=== PATIENT | male | born 1960 | race Caucasian/White ===

== ENCOUNTER 2018-03-20 08:30 | Outpatient (RCR) | payer OTHER, SELFPAY | END 2018-04-13 15:17 | LOC: CAR 08:30 | PROVIDERS: Family Provider Family Medicine; PCP Family Medicine; Visit Provider Internal Medicine Cardiovascular Disease | DX: I21.3 ST elevation (STEMI) myocardial infarction of unspecified site (principal) | CPT/HCPCS: 93798 ==

== ENCOUNTER 2018-05-02 06:50 | Day surgery (SDC) | payer OTHER, SELFPAY ==
[2018-05-02] VITALS (10 sets, daily range): BP systolic 105–136; BP diastolic 71–91; PULSE 45–52; RESP 6–16; TEMP 36–36.4; O2SAT 94–100; BMI 34.2
[2018-05-02] MEDS: SODIUM CHLORIDE 0.9% 1,000 ML 200 ML IV (07:45)
--- NOTE | 2018-05-02 08:31 | PM.HP.1 ---
History of Present Illness Date Patient Seen: 05/02/18 Time Patient Seen: 08:31 Chief complaint: [id number] SCREENING COLONOSCOPY Narrative: Very pleasant 4-year-old gentleman who presents today for his 1st screening colonoscopy. He reports that he had a heart attack in December of this year and has been on blood thinners since that time. He denies any chest pain. He reports that his weight has been stable. He denies any pain in his abdomen but does report he occasionally has a crampy sensation in the late afternoon. He has never seen any blood in his stools. He denies any family history of colon cancer. He reports that his heart attack sort of ?woke me up?. He needs a colonoscopy as part of the Health maintenance program. Patient History Medical History Obstructive sleep apnea of adult (Acute) CAD (coronary artery disease) (Chronic) Chronic radicular low back pain (Chronic) Hyperlipidemia (Chronic) History of small bowel obstruction (Resolved 2013) Myocardial infarction (Resolved 2017) Myocardial infarction involving left anterior descending (LAD) coronary artery (Resolved 2018) Surgical History History of placement of stent in LAD coronary artery (Resolved 2018) Family & Social History Family History: Reviewed 05/02/18 by Felisha Arellano MD Social History: household members spouse Tobacco & Substance use: Smoking Status Never smoker Meds Home Medications Medication Instructions Recorded Confirmed Type diclofenac sodium 75 mg PO BID #60 ect 05/31/17 03/21/18 Rx omeprazole 40 mg PO HS #90 tab 07/20/17 05/02/18 Rx albuterol sulfate [Ventolin HFA] 2 puff INH Q4HP PRN #1 ea 08/17/17 03/21/18 Rx cetirizine 10 mg PO QDAY #0 08/17/17 05/02/18 History atorvastatin [Lipitor] 10 mg PO HS #90 tab 10/22/17 05/02/18 Rx aspirin 81 mg PO QDAY #0 12/28/17 05/02/18 History losartan [Cozaar] BID #0 12/28/17 03/21/18 History nitroglycerin [Nitrostat] #0 12/28/17 03/21/18 History spironolactone #0 12/28/17 03/21/18 History ticagrelor [Brilinta] 90 mg PO #0 12/28/17 03/21/18 History hydrocortisone 2.5 % topical cream 1 applictn MO TID PRN #1 tube 03/12/18 03/21/18 Rx with perineal applicator carvedilol 6.25 mg PO BID 05/02/18 05/02/18 History Allergies Allergy/AdvReac Type Severity Reaction Status Date / Time No Known Drug Allergies Allergy Verified 05/02/18 07:18 Review of Systems Review of Systems All systems reviewed & are unremarkable except as noted in HPI and below Exam Vital Signs (past 8 hours): - 05/02/18 07:26 Temperature 97.5 F L Pulse Rate 46 L Respiratory Rate 16 Blood Pressure 136/85 H Pulse Oximetry 100 Oxygen Delivery Method Room Air Narrative Exam Narrative: Very pleasant middle-aged gentleman in no obvious distress. HEENT: Normocephalic and atraumatic, pupils equal round reactive to light and anicteric sclera Lungs: Clear bilaterally Heart: Regular rate and rhythm Abdomen: Soft, rotund, active bowel sounds Extremities: Warm and well perfused without edema Assessment & Plan Plan: Assessment/Plan Narrative: Very pleasant gentleman whose had a recent heart attack and no prior colonoscopy. We discussed the risks and benefits of colonoscopy including an increased bleeding while taking blood thinners. The patient has expressed an understanding of the risk is elected to have the procedure
--- NOTE | 2018-05-02 08:34 | P.HP_ITS ---
History of Present Illness Date Patient Seen: 05/02/18 Time Patient Seen: 08:31 Chief complaint: [id number] SCREENING COLONOSCOPY Narrative: Very pleasant 4-year-old gentleman who presents today for his 1st screening colonoscopy. He reports that he had a heart attack in December of this year and has been on blood thinners since that time. He denies any chest pain. He reports that his weight has been stable. He denies any pain in his abdomen but does report he occasionally has a crampy sensation in the late afternoon. He has never seen any blood in his stools. He denies any family history of colon cancer. He reports that his heart attack sort of ?woke me up?. He needs a colonoscopy as part of the Health maintenance program. Patient History Medical History Obstructive sleep apnea of adult (Acute) CAD (coronary artery disease) (Chronic) Chronic radicular low back pain (Chronic) Hyperlipidemia (Chronic) History of small bowel obstruction (Resolved 2013) Myocardial infarction (Resolved 2017) Myocardial infarction involving left anterior descending (LAD) coronary artery ( Resolved 2018) Surgical History History of placement of stent in LAD coronary artery (Resolved 2018) Family & Social History Family History: Reviewed 05/02/18 by Felisha Arellano MD Social History: household members spouse Tobacco & Substance use: Smoking Status Never smoker Meds Home Medications Medication Instructions Recorded Confirmed Type diclofenac sodium 75 mg PO BID #60 ect 05/31/17 03/21/18 Rx omeprazole 40 mg PO HS #90 tab 07/20/17 05/02/18 Rx albuterol sulfate [Ventolin HFA] 2 puff INH Q4HP PRN #1 ea 08/17/17 03/21/18 Rx cetirizine 10 mg PO QDAY #0 08/17/17 05/02/18 History atorvastatin [Lipitor] 10 mg PO HS #90 tab 10/22/17 05/02/18 Rx aspirin 81 mg PO QDAY #0 12/28/17 05/02/18 History losartan [Cozaar] BID #0 12/28/17 03/21/18 History nitroglycerin [Nitrostat] #0 12/28/17 03/21/18 History spironolactone #0 12/28/17 03/21/18 History ticagrelor [Brilinta] 90 mg PO #0 12/28/17 03/21/18 History hydrocortisone 2.5 % topical cream 1 applictn NV TID PRN #1 tube 03/12/18 Rx with perineal applicator carvedilol 6.25 mg PO BID 05/02/18 05/02/18 History Allergies Allergy/AdvReac Type Severity Reaction Status Date / Time No Known Drug Allergies Allergy Verified 05/02/18 07:18 Review of Systems Review of Systems All systems reviewed & are unremarkable except as noted in HPI and below Exam Vital Signs (past 8 hours): - 05/02/18 07:26 Temperature 97.5 F L Pulse Rate 46 L Respiratory Rate 16 Blood Pressure 136/85 H Pulse Oximetry 100 Oxygen Delivery Method Room Air Narrative Exam Narrative: Very pleasant middle-aged gentleman in no obvious distress. HEENT: Normocephalic and atraumatic, pupils equal round reactive to light and anicteric sclera Lungs: Clear bilaterally Heart: Regular rate and rhythm Abdomen: Soft, rotund, active bowel sounds Extremities: Warm and well perfused without edema Assessment & Plan Plan: Assessment/Plan Narrative: Very pleasant gentleman whose had a recent heart attack and no prior colonoscopy. We discussed the risks and benefits of colonoscopy including an increased bleeding while taking blood thinners. The patient has expressed an understanding of the risk is elected to have the procedure
[2018-05-02] MEDS: MIDAZOLAM 5 MG/5 ML VIAL IV (08:55)
[2018-05-02] MEDS: fentaNYL 250 MCG/5 ML INJ IV (08:56)
--- NOTE | 2018-05-02 09:04 | PM.OP.1 ---
Operative Date/Time/Diagnoses Date of procedure: 05/02/18 Time of procedure: 09:04 Pre-op diagnosis: Screening Post-op diagnosis: same Procedure & Clinicians Procedure: Colonoscopy to the cecum with polypectomy x1 Same procedure as scheduled: Yes Indications: No prior colonoscopy Surgeon: Felisha Arellano Click Yes if Unassisted: Yes Anesthesia Type: Sedation (Versed 10 mg; fentanyl 250 mcg) Operative Notes Findings: 1. Adequate prep 2. Significant diverticulosis from 60 cm to the junction of the sigmoid colon and rectum. Mostly large open pockets 3. A single 3 mm sessile polyp at 70 cm from the anal verge. It was removed with cold forceps and submitted for pathology 4. No AV malformations 5. Enlarged internal hemorrhoids but grade 1 6. Otherwise normal colonoscopy Closure Type: not applicable Specimen(s): other (Polyp at 70 cm) Estimated Blood Loss (mL): 1 Procedure in detail: After obtaining informed consent, the patient was brought to the GI suite and placed in the left lateral decubitus position on the examination table. After placement of appropriate monitors, the patient was given incremental doses of Versed and Fentanyl until an appropriate level of sedation was achieved. A time out was held per SCOAP protocol. A digital rectal examination was performed and did not reveal any masses or obstructing lesions. The colonoscope was gently passed into the patient's anus and the entire colon navigated to the level of the cecum with minimal difficulty. Once in the cecum, the scope was withdrawn being sure to go before and beyond all mucosal folds and prominences and get an excellent examination. The findings are noted above. At the level of the rectal vault, the scope was retroflexed and the internal anal canal was examined. The scope was straightened and air aspirated from the colon. The instrument was removed from the patient's body and the procedure was concluded. The patient was allowed to awaken from sedation without difficulty and taken to the post-anesthesia care unit in good condition. Total sedation time 33 min Total withdrawal time 11 min Complications: none Condition: stable Disposition: PACU Plan for aftercare: 1. Discharge to home 2. Plan for next colonoscopy in 5 years or as clinically indicated
--- NOTE | 2018-05-02 09:26 | SUR.PHASEI ---
Passing flatus but denies cramping.
--- NOTE | 2018-05-02 09:29 | SUR.PHASEI ---
till quite sleepy but easily arousable to voice. VSS and despite sleepiness does meet PACU d/c criteria.
--- NOTE | 2018-05-02 09:49 | SUR.PHASEII ---
Spoke to Diallo on phone with D/C instructions and findings due to patient sleepiness.
--- NOTE | 2018-05-02 09:59 | SUR.PHASEII ---
About ready for discharge but after dressing feeling lihghtheaded and returned to the stretcher. VS done.
--- NOTE | 2018-05-02 10:29 | SUR.PHASEII ---
Discharged at 1018 after equal set of orthostatic VS. Desired D/C home at that time. Accompanied to exit in W/C by volunteer and .
--- NOTE | 2018-05-02 23:18 | PATH_ITS ---
Specimen ID: [id number] Control ID: [facility] PATHOLOGY ONLY [id number] [place] [address] Patient Details JEANNIE CH : 1960 Age(y/m/d): Gender: M SSN: Additional Information: Clinical Info: [id number] Specimen Details Date collected: 05/02/20182317 Local Date received: 05/02/2018 Date entered: 05/02/2018 Date reported: 05/08/2018 1905 ET Physician Details Ordering: Olga PALACIOS Referring: ID: Pathology Report Tests Ordered: Clinician Provided ICD Code(s) & Clinical History: Material Submitted: () Gross Description: (01) Received in one formalin-filled container labeled with the patient's name and labeled colon polyp at 70 cm, are two 0.3-0.4 cm portions of tissue, entirely submitted in one cassette.([id number]) /FRR COLON POLYP AT 70CM Diagnosis: (02) Colon Polyp At 70 CM: Sessile serrated adenoma. BFI/05/03/2018 Pathologist Provided ICD Code(s): (02) D12.6 CPT Codes: (02) 309032 This is an amended report due to a clerical error. There is no change in the diagnosis. This case is amended in order for the results to cross the electronic interface. The final diagnosis is not changed. This case was originally reviewed and reported by Dr. Aryan Yancey on 05/03/2018. Electronically signed by (02) Elizabeth Amin MD, Pathologist NPI- [id number]
== END 2018-05-02 10:18 | disposition home or self-care (01) ==
PROVIDERS: Family Provider Family Medicine; PCP Family Medicine; Visit Provider Surgery
PROC: 0DJD8ZZ Inspection of Lower Intestinal Tract, Via Natural or Artificial Opening Endoscopic (ICD-10-PCS; CPT 45378; principal; 2018-05-02 07:45)
DX: Z12.11 Encounter for screening for malignant neoplasm of colon (principal); K57.30 Diverticulosis of large intestine without perforation or abscess without bleeding; K64.0 First degree hemorrhoids; I25.2 Old myocardial infarction; G47.33 Obstructive sleep apnea (adult) (pediatric); I25.10 Atherosclerotic heart disease of native coronary artery without angina pectoris; G89.29 Other chronic pain; M54.5 Low back pain; E78.5 Hyperlipidemia, unspecified; D12.4 Benign neoplasm of descending colon
CPT/HCPCS: 45380; 99152; 99153; J2250; J3010

== ENCOUNTER → 2018-11-25 16:13 | Outpatient (CLI) | payer OTHER, SELFPAY ==
--- NOTE | 2018-11-25 16:16 | DI.MRI.S_ITS ---
PROCEDURE: MR LUMBAR SPINE WO CON INDICATIONS: Low back pain radiating into bilateral hips and down posterior bilateral legs TECHNIQUE: Noncontrast sagittal T1 spin echo and T2 fast echo, sagittal STIR, axial T1 and T2 fast spin echo through the lumbar spine. In cases with scoliosis, additional coronal T2 fast spin echo may be performed. COMPARISON: [facility], MR, L-SPINE WITHOUT CONTRAST, 04/03/2017, 18:41. [facility], CR, L-SPINE 2-3 VIEWS, 06/25/2014, 10:45. FINDINGS: Image quality: Excellent. Alignment and Curvature: 5 lumbar-type vertebral bodies by plain film. Mild grade 1 retrolisthesis of L2 on L3 and L3 on L4. Bone Marrow: Marrow is of normal overall signal. No acute vertebral body compression fractures. Mild reactive signal within the endplates adjacent to the L1-L2, L2-L3, L3-L4 intervertebral discs. Spinal Cord: Conus medullaris terminates at the lower L1 level. Visualized cord demonstrates normal signal and size. Paraspinous Soft Tissues: No paravertebral masses. L1-L2: Congenital canal stenosis. Moderate disc desiccation. Mild diffuse disc bulge. Mild disc height loss. Mild ligamentum flavum hypertrophy. Mild epidural lipomatosis. Moderate canal stenosis. Mild foraminal stenosis bilaterally. No change. L2-L3: Congenital canal stenosis. Moderate disc height loss and desiccation. Moderate diffuse disc bulge with superimposed broad-based left posterolateral protrusion. Previously seen superimposed extrusion has resolved. Mild epidural lipomatosis. Mild facet and ligamentum flavum hypertrophy. Severe canal stenosis is unchanged. Moderate left and mild right subarticular foraminal stenosis is unchanged. L3-L4: Congenital canal stenosis. Moderate disc height loss and desiccation. Mild diffuse disc bulge. Mild facet and ligament flavum hypertrophy. Mild epidural lipomatosis. Increased, severe canal stenosis. No change in moderate subarticular foraminal stenosis bilaterally. L4-L5: Congenital canal stenosis. Mild disc height loss and desiccation. Mild diffuse disc bulge. Moderate facet and ligamentum flavum hypertrophy bilaterally. Possible right hemilaminotomy. Increased, severe canal stenosis. Moderate subarticular foraminal stenosis bilaterally is unchanged. L5-S1: Congenital canal stenosis. Moderate bilateral facet hypertrophy. Mild canal stenosis. Moderate subarticular foraminal stenosis bilaterally. No change. IMPRESSION: 1. Diffuse congenital canal stenosis with superimposed multilevel degenerative disc and facet disease, as well as ligamentum flavum hypertrophy and epidural lipomatosis. 2. Multilevel canal stenoses, worst at L2-L3, L3-L4, and L4-L5, where there are severe canal stenoses present. 3. Multilevel foraminal stenoses, as described above. Dictated by: You Godinez M.D. on 11/25/2018 at 16:29 Approved by: You Godinez M.D. on 11/25/2018 at 16:35
== END ==
PROVIDERS: Family Provider Family Medicine; PCP Internal Medicine; Visit Provider Neurological Surgery
DX: M51.16 Intervertebral disc disorders with radiculopathy, lumbar region (principal); M48.07 Spinal stenosis, lumbosacral region; M48.062 Spinal stenosis, lumbar region with neurogenic claudication; M54.5 Low back pain; E88.2 Lipomatosis, not elsewhere classified
CPT/HCPCS: 72148

== ENCOUNTER → 2019-02-13 09:31 | Outpatient (CLI) | payer OTHER, SELFPAY ==
[2019-02-13 11:06] LABS: Alanine Aminotransferase 20 IU/L (21-72); Albumin 4.2 g/dL (3.5-5.0); Albumin Globulin Ratio 1.4 (1.0-2.8); Alkaline Phosphatase 69 U/L (38-126); Aspartate Aminotransferase 31 IU/L (17-59); Bilirubin Total 1.3 mg/dL (0.2-1.3); HEMOLYSIS 22 (0-50); Total Protein 7.2 g/dL (6.3-8.2)
== END ==
PROVIDERS: Family Provider Family Medicine; PCP Internal Medicine; Visit Provider Internal Medicine
DX: I50.22 Chronic systolic (congestive) heart failure (principal)
CPT/HCPCS: 36415; 80076

== ENCOUNTER → 2019-02-20 06:53 | Outpatient (CLI) | payer OTHER, SELFPAY ==
--- NOTE | 2019-02-20 | DI.ECHO.S_ITS ---
[facility]---------+ [facility] +---------+ : : [address] [address] : : : : [id number] : : : : Phone: [phone] Echocardiogram Report + + :Name: JEANNIE CH Study Date: 02/20/2019 Height: 72 in : :[facility] Exam Location: [facility] Weight: 258 lb : : Gender: Male BSA: 2.4 m2 : :: 1960 Age: 59 yrs BP: 118/72 mmHg: :Reason For Study: Myocardial Infarction : : Performed By: Tiffani Valenzuela : :Referring: ALICIA DURAN : + + Interpretation Summary Moderately dilated left ventricle with ejection fraction 25-30%. Old anterior, septum and apical infarct. Mild biatrial enlargement. Mild mitral regurgitation. Comparison is made with the echocardiogram of 02/12/2018, LV function and wall motion abnormality have worsen. Procedure: A two-dimensional transthoracic echocardiogram with color flow and Doppler was performed. The study quality was technically adequate. Comparison is made with the echocardiogram of 02/12/2018. The patient was in normal sinus rhythm during the exam. Left Ventricle: The left ventricle is moderately dilated. Left ventricular wall thickness is normal. There is no thrombus. The ejection fraction is estimated to be 25-30%. There is anterior wall akinesis. There is septal wall severe hypokinesis. Right Ventricle: The right ventricle is normal in size and function. Atria: There is mild biatrial enlargement. The interatrial septum is intact with no evidence for an atrial septal defect. Mitral Valve: The mitral valve is normal in structure and function. There is mild mitral regurgitation. Aortic Valve: The aortic valve is trileaflet. The aortic valve opens well. There is trace aortic regurgitation. Tricuspid Valve: The tricuspid valve is normal in structure and function. There is a trace or physiologic amount of tricuspid regurgitation. Pulmonary artery pressures cannot be estimated because of the lack of a measurable TR jet velocity. Pulmonic Valve: The pulmonic valve is not well seen, but is grossly normal. There is a trace or physiologic amount of pulmonic regurgitation. Great Vessels: The ascending aorta is normal in size. The IVC is of normal diameter and collapses greater than 50% with a sniff. This suggests a low right atrial pressure of 3 mm Hg. Pericardium/ Pleura There is an anterior echo-free space consistent with a fat pad. There is no pericardial effusion. There is no pleural effusion. MMode/2D Measurements & Calculations LVIDd: 6.8 cm LVOT diam: 2.3 cm LVIDs: 5.5 cm asc Aorta Diam: 3.1 cm FS: 18.6 % Ao Arch Diam (Prox Trans): 3.2 cm EPSS: 2.8 cm IVSd: 0.94 cm LVPWd: 0.92 cm LV marrero. diameter/BSA (cm/m^2): 2.9 LV sys. diameter/BSA (cm/m^2): 2.3 LA A2 area: 27.1 cm2 RA long axis: 6.1 cm LA A4 area: 24.3 cm2 RA area: 29.3 cm2 LA length (vol): 6.1 cm RA vol: 119.4 ml LA vol: 91.6 ml RA : 50.3 ml/m2 LA vol index: 38.6 ml/m2 TAPSE: 2.2 cm Doppler Measurements & Calculations Ao V2 max: 110.2 cm/sec LVOT Max Dirk: 75.9 cm/sec Ao V2 mean: 81.0 cm/sec LV V1 max P.3 mmHg Ao max P.9 mmHg LV V1 VTI: 14.0 cm Ao mean P.8 mmHg NATHALY(I,D): 2.4 cm2 Ao V2 VTI: 23.4 cm NATHALY(V,D): 2.7 cm2 sev ratio: 0.60 NATHALY indexed to BSA (cm^2/m^2): 1.0 MV E max dirk: 76.8 cm/sec PA V2 max: 52.4 cm/sec MV A max dirk: 44.6 cm/sec PA V2 mean: 36.7 cm/sec MV E/A: 1.7 PA mean P.59 mmHg Med Peak E' Dirk: 7.5 cm/sec PA pr(Accel): 12.5 mmHg E/E' med: 10.3 MV dec time: 0.10 sec SV(LVOT): 55.8 ml Electronically signed by: Khalida Narvaez on Reading Physician:02/20/2019 10:59 AM
== END ==
PROVIDERS: PCP Internal Medicine; Visit Provider Internal Medicine
DX: I21.9 Acute myocardial infarction, unspecified (principal); I34.0 Nonrheumatic mitral (valve) insufficiency
CPT/HCPCS: 93306

== ENCOUNTER → 2019-03-31 09:45 | Outpatient (CLI) | payer OTHER, SELFPAY ==
[2019-03-31 11:13] LABS: BUN Creatinine Ratio 17.3 (6-22); Blood Urea Nitrogen 19 mg/dL (9-20); Calcium 9.1 mg/dL (8.4-10.2); Carbon Dioxide 26 mmol/L (22-32); Chloride 108 mmol/L (98-107); Estimated Glomerular Filt Rate > 60.0 mL/min (>60); Glucose 101 mg/dL (80-110); HEMOLYSIS < 15 (0-50); Potassium 5.3 mmol/L (3.4-5.1); Sodium 141 mmol/L (137-145)
== END ==
PROVIDERS: PCP Internal Medicine; Visit Provider Internal Medicine Cardiovascular Disease
DX: I25.10 Atherosclerotic heart disease of native coronary artery without angina pectoris (principal); I25.5 Ischemic cardiomyopathy
CPT/HCPCS: 36415; 80048

== ENCOUNTER → 2019-05-16 13:46 | Outpatient (CLI) | payer OTHER, SELFPAY ==
--- NOTE | 2019-05-16 | DI.RAD.S_ITS ---
PROCEDURE: XR TOE LT MIN 2V INDICATIONS: TOE PAIN, NO TRAUMA TECHNIQUE: 3 views of the left toe(s) acquired. COMPARISON: None. FINDINGS: Bones: No fractures or dislocations. No suspicious bony lesions. Severe first MTP joint degeneration. Chronic ossicle projects at the great toe interphalangeal joint. Marginal lucency at the first MTP joint. There is spurring and possible osseous bunion on the weight-bearing views would be more specific. Soft tissues: No suspicious soft tissue densities. IMPRESSION: Severe first MTP joint degeneration. Great toe interphalangeal joint degeneration. Small marginal lucency projecting at the medial aspect of the first MTP joint. Technically age-indeterminate finding. Dictated by: Tu Mcdermott M.D. on 05/16/2019 at 16:41 Approved by: Tu Mcdermott M.D. on 05/16/2019 at 16:43
== END ==
PROVIDERS: Family Provider Internal Medicine; PCP Internal Medicine; Visit Provider Nurse Practitioner Family
DX: M79.675 Pain in left toe(s) (principal); M19.072 Primary osteoarthritis, left ankle and foot
CPT/HCPCS: 73660

== ENCOUNTER 2019-06-04 08:30 | Outpatient (RCR) | payer OTHER, SELFPAY | END 2019-06-05 11:30 | disposition home or self-care (01) | LOC: CAR 08:30 | PROVIDERS: Family Provider Family Medicine; PCP Internal Medicine; Visit Provider Internal Medicine | DX: Z95.5 Presence of coronary angioplasty implant and graft (principal) | CPT/HCPCS: 93798 ==

== ENCOUNTER → 2019-09-15 08:09 | Outpatient (CLI) | payer OTHER, SELFPAY ==
[2019-09-15 09:29] LABS: Blood Urea Nitrogen 31 mg/dL (9-20); Carbon Dioxide 27 mmol/L (22-32); Chloride 103 mmol/L (98-107); Estimated Glomerular Filt Rate > 60.0 mL/min (>60); Glucose 112 mg/dL (80-110); HEMOLYSIS < 15 (0-50); Potassium 4.7 mmol/L (3.4-5.1); Sodium 138 mmol/L (137-145)
== END ==
PROVIDERS: Visit Provider Internal Medicine Cardiovascular Disease
DX: I25.5 Ischemic cardiomyopathy (principal)
CPT/HCPCS: 36415; 80048

== ENCOUNTER → 2020-05-18 14:11 | Outpatient (CLI) | payer OTHER, SELFPAY ==
[2020-05-19 08:17] LABS: PSA, Total 0.5 ng/mL (0.0-4.0)
== END ==
PROVIDERS: PCP Internal Medicine; Referring Provider Internal Medicine; Visit Provider Internal Medicine
DX: N40.1 Benign prostatic hyperplasia with lower urinary tract symptoms (principal)
CPT/HCPCS: 36415; 84153; 84154

== ENCOUNTER → 2020-10-18 09:10 | Outpatient (CLI) | payer OTHER, SELFPAY ==
[2020-10-18 11:01] LABS: Alanine Aminotransferase 25 IU/L (<50); Albumin 4.2 g/dL (3.5-5.0); Albumin Globulin Ratio 1.4 (1.0-2.8); Alkaline Phosphatase 56 U/L (38-126); Aspartate Aminotransferase 34 IU/L (17-59); BUN Creatinine Ratio 27.8 (6-22); Bilirubin Total 1.1 mg/dL (0.2-1.3); Blood Urea Nitrogen 30 mg/dL (9-20); Calcium 9.1 mg/dL (8.4-10.2); Carbon Dioxide 29 mmol/L (22-32); Chloride 102 mmol/L (98-107); Cholesterol 186 mg/dL (140-199); Estimated Glomerular Filt Rate > 60.0 mL/min (>60); Globulin 3.1 g/dL (1.7-4.1); Glucose 110 mg/dL (80-110); HDL Cholesterol 40 mg/dL (40-60); HEMOLYSIS < 15 (0-50); LDL Cholesterol Calculated 110 mg/dL (<100); Potassium 5.1 mmol/L (3.4-5.1); Sodium 137 mmol/L (137-145); Total Protein 7.3 g/dL (6.3-8.2); Triglycerides 179 mg/dL (35-150)
[2020-10-18 12:29] LABS: TSH w/ Reflex to FT4 1.45 uIU/mL (0.47-4.68)
== END ==
PROVIDERS: PCP Internal Medicine; Referring Provider Internal Medicine; Visit Provider Internal Medicine
DX: E78.5 Hyperlipidemia, unspecified (principal); I25.10 Atherosclerotic heart disease of native coronary artery without angina pectoris; I25.5 Ischemic cardiomyopathy
CPT/HCPCS: 36415; 80053; 80061; 84443

== ENCOUNTER → 2020-11-17 11:21 | Outpatient (CLI) | payer OTHER, SELFPAY ==
--- NOTE | 2020-11-17 11:23 | DI.RAD.S_ITS ---
PROCEDURE: XR LUMBAR SPINE 2-3V INDICATIONS: Chronic low back pain TECHNIQUE: 3 views of the lumbar spine were acquired. COMPARISON: [facility], , L-SPINE 2-3 VIEWS, 06/25/2014, 10:45. FINDINGS: Bones: 5 [id number] vertebrae are present. There is trace L1-L2, L2-L3 and L3-L4 retrolisthesis. Mild degenerative disc disease noted throughout the thoracic spine. Mild facet arthropathy in the lower lumbar spine. No vertebral body compression fractures. No suspicious bony lesions. Soft tissues: Overlying bowel gas pattern is normal. No suspicious soft tissue calcifications. IMPRESSION: 1. Multilevel degenerative disc disease. 2. Multilevel facet arthropathy. 3. No fracture. No acute osseous lesion. If symptoms and/or clinical suspicion for pathology persists, evaluation with MRI should be considered for further assessment. Dictated by: Tricia Peña MD, PhD on 11/17/2020 at 17:19 Approved by: Tricia Peña MD, PhD on 11/17/2020 at 17:20
== END ==
PROVIDERS: PCP Internal Medicine; Referring Provider Internal Medicine; Visit Provider Internal Medicine
DX: M51.14 Intervertebral disc disorders with radiculopathy, thoracic region (principal); M47.26 Other spondylosis with radiculopathy, lumbar region; G89.29 Other chronic pain
CPT/HCPCS: 72100

== ENCOUNTER 2020-11-21 11:22 | Emergency (ER) | payer OTHER, SELFPAY ==
[2020-11-21] VITALS (11 sets, daily range): BP systolic 110–136; BP diastolic 65–83; PULSE 59–135; RESP 17–37; TEMP 36.4; O2SAT 98–100; BMI 36.3
--- NOTE | 2020-11-21 11:32 | DI.RAD.S_ITS ---
PROCEDURE: XR CHEST 1V INDICATIONS: chest pain TECHNIQUE: One view of the chest was acquired. COMPARISON: [facility], , CHEST 2 VIEW, 01/10/2017, 12:08. FINDINGS: Surgical changes and devices: Left chest wall 2 lead cardiac device with the leads overlying the expected location of the right atrium and right ventricle. No definite fracturing. Lungs and pleura: Lungs are clear. No pleural effusions or pneumothorax. Mediastinum: Mediastinal contours appear normal. Heart size is along the upper limits of slightly enlarged. Bones and chest wall: No suspicious bony lesions. Overlying soft tissues appear unremarkable. IMPRESSION: Heart size is along the upper limits of normal to slightly enlarged, unchanged. Imaged lungs are clear. Two lead cardiac device with leads overlying the expected location of the right atrium and right Ventricle Dictated by: Shawn Shepherd D.O. on 11/21/2020 at 10:53 Approved by: Shawn Shepherd D.O. on 11/21/2020 at 10:54
[2020-11-21 11:53] LABS: Add Manual Diff / Slide Review NO; Basophils Absolute Auto 0 /uL (0-100); Basophils Percent Auto 0.4 % (0-2); Eosinophils Absolute Auto 200 /uL (0-450); Eosinophils Percent Auto 2.9 % (2-4); Hematocrit 50.5 % (41-53); Hemoglobin 16.5 g/dL (13.5-17.5); Lymphocytes Absolute Auto 1000 /uL (1100-4500); Lymphocytes Percent Auto 17.6 % (25-40); Mean Corpuscular HGB Conc 32.7 % (30-36); Mean Corpuscular Hemoglobin 31.2 PG (26-34); Mean Corpuscular Volume 95.2 fL (80-100); Monocytes Absolute Auto 800 /uL (0-900); Neutrophils Absolute Auto 3900 /uL (1500-7000); Neutrophils Percent Auto 66.1 % (50-75); Platelet Count 187 X10^3/uL (150-400); Red Blood Cell Count 5.31 X10^6/uL (4.5-5.9); Red Cell Distribution Width 13.3 % (11.6-14.8); White Blood Cell Count 5.9 X10^3/uL (4.5-11.0)
[2020-11-21 11:59] LABS: INR 1.1 (0.9-1.3); Prothrombin Time 12.7 SECONDS (10.1-12.7)
[2020-11-21 12:05] LABS: Alanine Aminotransferase 28 IU/L (<50); Albumin 4.2 g/dL (3.5-5.0); Albumin Globulin Ratio 1.4 (1.0-2.8); Alkaline Phosphatase 57 U/L (38-126); Aspartate Aminotransferase 34 IU/L (17-59); BUN Creatinine Ratio 25.7 (6-22); Bilirubin Total 0.8 mg/dL (0.2-1.3); Blood Urea Nitrogen 26 mg/dL (9-20); Calcium 9.1 mg/dL (8.4-10.2); Carbon Dioxide 28 mmol/L (22-32); Chloride 105 mmol/L (98-107); Creatine Kinase 126 U/L (55-170); Estimated Glomerular Filt Rate > 60.0 mL/min (>60); Glucose 108 mg/dL (80-110); Lipase 61 U/L (23-300); Magnesium 1.8 mg/dL (1.6-2.3); Sodium 136 mmol/L (137-145); Total Protein 7.2 g/dL (6.3-8.2)
[2020-11-21 12:08] LABS: PTT Partial Thromboplastin Tim 30 SECONDS (26.4-36.2)
[2020-11-21 12:14] LABS: NT-proBNP (BNP-Adult 18+) 171 pg/mL (<125)
[2020-11-21 12:16] LABS: Troponin I < 0.012 ng/mL (0.01-0.034)
[2020-11-21 12:20] LABS: CKMB % Relative Index 1.4 % (1.5-5.0); Creatine Kinase MB 1.79 ng/mL (<2.37); HEMOLYSIS 22 (0-50)
--- NOTE | 2020-11-21 12:36 | ED_ITS ---
HPI - Chest Pain <Jo Ann VogtHEAVEN truongP-BC - Last Filed: 11/21/20 14:40> General Chief Complaint: Chest Pain Stated Complaint: chest dicomfort / not feeling well Time Seen by Provider: 11/21/20 11:35 Source: patient Mode of arrival: Ambulatory Limitations: no limitations History of Present Illness HPI narrative: The patient is a 60-year-old male nonsmoker with history of CAD, to cardiac stents, pacer ICD, chronic back pain who presents with a chief complaint of chest discomfort for the past week. He states that the pain radiates to his back. It comes and goes. He is also feeling fatigued, no specific alleviating or exacerbating factors. Does come when he is resting at times. Does complain of some chills 2 days ago, no cough or congestion. Denies any palpitations. Denies any shortness of breath or swelling of the extremities. States he feels ?very worn out.He states his last echo was in the fall, and his ejection fraction was about 25%. The patient states that his chest discomfort is not pain, and at worst is a 2/10. Related Data Home Medications Medication Instructions Recorded Confirmed aspirin 81 mg PO QDAY #0 12/28/17 09/16/20 atorvastatin 80 mg tablet 80 mg PO BEDTIME tab 07/29/20 09/16/20 carvedilol 12.5 mg tablet 12.5 mg PO BID tab 07/29/20 09/16/20 clopidogrel 75 mg tablet 75 mg PO .QEVENING tab 07/29/20 09/16/20 dupilumab 300 mg/2 mL subcutaneous 300 mg SUBCUT Q2W ml 07/29/20 09/16/20 syringe nitroglycerin 0.4 mg sublingual 0.4 mg SUBLINGUAL Q5-15M PRN #0 tab 07/29/20 09/16/20 tablet omeprazole 40 mg capsule,delayed 40 mg PO DAILY tab 07/29/20 09/16/20 release sacubitril 24 mg-valsartan 26 mg 1 tab PO BID 07/29/20 09/16/20 tablet sacubitril 49 mg-valsartan 51 mg 1 tab PO BID 07/29/20 09/16/20 tablet spironolactone 25 mg tablet 25 mg PO .QEVENING #0 tab 07/29/20 09/16/20 Previous Rx's Medication Instructions Recorded albuterol sulfate [Ventolin HFA] 2 puff INH Q4HP PRN #1 ea 08/17/17 cyclobenzaprine 5 mg tablet 5 mg PO TID PRN #30 tab 09/16/20 diclofenac sodium 75 mg 75 mg PO BID PRN #60 tab 09/16/20 tablet,delayed release prednisone 10 mg tablet 10 mg PO DAILY PRN #15 tab 09/16/20 hydrocortisone 2.5 % topical cream 1 applic NC TID PRN #1 tube 11/16/20 with perineal applicator Allergies Allergy/AdvReac Type Severity Reaction Status Date / Time No Known Drug Allergies Allergy Verified 09/16/20 14:37 Review of Systems <MEGHNA Brizuela - Last Filed: 11/21/20 14:40> Review of Systems Narrative: GENERAL: Denies chills, fatigue, malaise, fever, sweats. HEENT: Denies sinus pain, ear pain, sore throat, difficulty swallowing, dizziness. RESPIRATORY: Denies dyspnea, cough, wheezing, hemoptysis, sputum. CARDIOVASCULAR: See HPI GASTROINTESTINAL: Denies nausea, vomiting, abdominal pain, diarrhea, constipation, melena. : Denies dysuria, frequency, incontinence, hematuria, urinary retention. MUSCULOSKELETAL: denies weakness, joint pain, or bony pain SKIN: Denies rash, skin lesions, or other NEUROLOGIC: Denies weakness, headache, numbness, change in speech, confusion, seizures, incoordination. PSYCHIATRIC: No concerning psychosocial issues. 12 point review of systems is negative except for those stated above Patient History <MEGHNA Brizuela - Last Filed: 11/21/20 14:40> Medical History Chronic radicular low back pain Coronary artery disease involving andreafski coronary artery of andreafski heart without angina pectoris (12/28/17) History of small bowel obstruction (2013) Hyperlipidemia Ischemic cardiomyopathy Myocardial infarction involving left anterior descending (LAD) coronary artery (2017) Obstructive sleep apnea of adult Surgical History History of placement of stent in LAD coronary artery (2017) S/P implantation of automatic cardioverter/defibrillator (AICD) S/P laminectomy Social History household members: spouse Smoking Status: Never smoker Smoking Status: Never smoker Exam <MEGHNA Brizuela - Last Filed: 11/21/20 14:40> Narrative Exam Narrative: GENERAL: This is a well-nourished, well-developed patient, in no acute distress HEAD: Atraumatic. Normocephalic. No temporal or scalp tenderness. EYES: Pupils equal round and reactive. Extraocular motions intact. No scleral icterus. No injection or drainage. ENT: Nose without bleeding, purulent drainage or septal hematoma. Wearing a mask. Airway patent. NECK: Trachea midline. No JVD or lymphadenopathy. Supple, nontender, no meningeal signs. CARDIOVASCULAR: Regular rate and rhythm RESPIRATORY: Clear to auscultation. Breath sounds equal bilaterally. No wheezes, rales, or rhonchi. GASTROINTESTINAL: Abdomen soft, non-tender, nondistended. No hepato- splenomegaly, or palpable masses. No guarding. EXTREMITIES: No clubbing, cyanosis, or edema. No joint tenderness, effusion, or edema noted. BACK: Nontender without deformity or crepitance. No flank tenderness. NEURO: AOx3. SKIN: No rash or erythema. Initial Vital Signs Initial Vital Signs: Vital Signs Temperature 97.5 F L 11/21/20 11:32 Pulse Rate 60 11/21/20 11:32 Respiratory Rate 18 11/21/20 11:32 Blood Pressure 136/83 11/21/20 11:32 Pulse Oximetry 100 11/21/20 11:32 <Vipin Bowman DO - Last Filed: 11/21/20 14:41> Initial Vital Signs Initial Vital Signs: Vital Signs Temperature 97.5 F L 11/21/20 11:32 Pulse Rate 60 11/21/20 11:32 Respiratory Rate 18 11/21/20 11:32 Blood Pressure 136/83 11/21/20 11:32 Pulse Oximetry 100 11/21/20 11:32 Scores <MEGHNA Brizuela - Last Filed: 11/21/20 14:40> GCS [place] coma scale eye opening: Spontaneous [place] coma scale verbal response: Orientated [place]io coma scale motor response: Obey commands Tonio coma scale total score: 15 Course <MEGHNA Brizuela - Last Filed: 11/21/20 14:40> Orders Ordered: ED Orders 11/21/20 11:32 XR chest 1V Stat EKG-12 Lead Stat 11/21/20 11:40 Complete Blood Count AUTO DIFF Stat Comprehensive Metabolic Panel Stat Lipase Stat Magnesium Stat NT-proBNP (BNP-Adult 18+) Stat Partial Thromboplastin Time Stat Prothrombin Time INR Stat Troponin & CK Cardiac Panel Stat 11/21/20 13:16 COVID19 Stat 11/21/20 13:45 Troponin & CK Cardiac Panel Stat Consultations Consultation #1: I spoke with Dr. Sauer from [facility], who states that the patient is more than welcome to follow up in clinic with them. He states that if I get a 2nd negative troponin result, the patient is safe for discharge. Time: 13:30 Vital Signs Vital signs: Vital Signs - 8 hr 11/21/20 11:32 11/21/20 11:36 11/21/20 12:00 Temperature 97.5 F L Pulse Rate 60 60 60 Respiratory Rate 18 18 24 Blood Pressure 136/83 Pulse Oximetry 100 100 100 11/21/20 12:07 11/21/20 12:30 11/21/20 13:09 Temperature Pulse Rate 60 59 L 135 H Respiratory Rate 37 H 22 Blood Pressure 120/67 134/65 Pulse Oximetry 98 99 11/21/20 13:12 11/21/20 13:30 11/21/20 14:00 Temperature Pulse Rate 61 60 60 Respiratory Rate 22 17 20 Blood Pressure 130/77 110/76 116/77 Pulse Oximetry 100 99 100 11/21/20 14:30 11/21/20 14:31 Temperature Pulse Rate 60 60 Respiratory Rate 35 H 20 Blood Pressure 131/70 Pulse Oximetry 99 100 <Vipin Bowman, DO - Last Filed: 11/21/20 14:41> Orders Ordered: ED Orders 11/21/20 11:32 XR chest 1V Stat EKG-12 Lead Stat 11/21/20 11:40 Complete Blood Count AUTO DIFF Stat Comprehensive Metabolic Panel Stat Lipase Stat Magnesium Stat NT-proBNP (BNP-Adult 18+) Stat Partial Thromboplastin Time Stat Prothrombin Time INR Stat Troponin & CK Cardiac Panel Stat 11/21/20 13:16 COVID19 Stat 11/21/20 13:45 Troponin & CK Cardiac Panel Stat Vital Signs Vital signs: Vital Signs - 8 hr 11/21/20 11:32 11/21/20 11:36 11/21/20 12:00 Temperature 97.5 F L Pulse Rate 60 60 60 Respiratory Rate 18 18 24 Blood Pressure 136/83 Pulse Oximetry 100 100 100 11/21/20 12:07 11/21/20 12:30 11/21/20 13:09 Temperature Pulse Rate 60 59 L 135 H Respiratory Rate 37 H 22 Blood Pressure 120/67 134/65 Pulse Oximetry 98 99 11/21/20 13:12 11/21/20 13:30 11/21/20 14:00 Temperature Pulse Rate 61 60 60 Respiratory Rate 22 17 20 Blood Pressure 130/77 110/76 116/77 Pulse Oximetry 100 99 100 11/21/20 14:30 11/21/20 14:31 Temperature Pulse Rate 60 60 Respiratory Rate 35 H 20 Blood Pressure 131/70 Pulse Oximetry 99 100 MDM - Chest Pain <BALDEMAR Brizuela-BC - Last Filed: 11/21/20 14:40> Lab Data Result diagrams: 11/21/20 11:40 11/21/20 11:40 Labs: Lab Results 11/21/20 11/21/20 11/21/20 Range/Units 11:40 11:40 11:40 WBC 5.9 (4.5-11.0) X10^3/uL RBC 5.31 (4.5-5.9) X10^6/uL Hgb 16.5 (13.5-17.5) g/dL Hct 50.5 (41-53) % MCV 95.2 (80-100) fL MCH 31.2 (26-34) PG MCHC 32.7 (30-36) % RDW 13.3 (11.6-14.8) % Plt Count 187 (150-400) X10^3/uL Neut % (Auto) 66.1 (50-75) % Lymph % (Auto) 17.6 L (25-40) % Collier % (Auto) 13.0 (3-14) % Eos % (Auto) 2.9 (2-4) % Baso % (Auto) 0.4 (0-2) % Neut # (Auto) 3900 (2110-6657) /uL Lymph # (Auto) 1000 L (7822-8966) /uL Collier # (Auto) 800 (0-900) /uL Eos # (Auto) 200 (0-450) /uL Baso # (Auto) 0 (0-100) /uL PT 12.7 (10.1-12.7) SECONDS INR 1.1 (0.9-1.3) APTT 30 (26.4-36.2) SECONDS Sodium 136 L (137-145) mmol/L Potassium 5.0 (3.4-5.1) mmol/L Chloride 105 (98-107) mmol/L Carbon Dioxide 28 (22-32) mmol/L BUN 26 H (9-20) mg/dL Creatinine 1.01 (0.66-1.25) mg/dL Estimated GFR > 60.0 (>60) mL/min BUN/Creatinine Ratio 25.7 H (6-22) Glucose 108 (80-110) mg/dL Calcium 9.1 (8.4-10.2) mg/dL Magnesium (1.6-2.3) mg/dL Total Bilirubin 0.8 (0.2-1.3) mg/dL AST 34 (17-59) IU/L ALT 28 (<50) IU/L Alkaline Phosphatase 57 (38-126) U/L Total Creatine Kinase 126 (55-170) U/L CK-MB (CK-2) 1.79 (<2.37) ng/mL CK-MB (CK-2) Rel Index 1.4 L (1.5-5.0) % Troponin I < 0.012 (0.01-0.034) ng/mL NT-Pro-B Natriuret Pep (<125) pg/mL Total Protein 7.2 (6.3-8.2) g/dL Albumin 4.2 (3.5-5.0) g/dL Globulin 3.0 (1.7-4.1) g/dL Albumin/Globulin Ratio 1.4 (1.0-2.8) Lipase 61 (23-300) U/L SARS-CoV-2 (PCR) (Negative) 11/21/20 11/21/20 11/21/20 Range/Units 11:40 13:16 13:45 WBC (4.5-11.0) X10^3/uL RBC (4.5-5.9) X10^6/uL Hgb (13.5-17.5) g/dL Hct (41-53) % MCV (80-100) fL MCH (26-34) PG MCHC (30-36) % RDW (11.6-14.8) % Plt Count (150-400) X10^3/uL Neut % (Auto) (50-75) % Lymph % (Auto) (25-40) % Collier % (Auto) (3-14) % Eos % (Auto) (2-4) % Baso % (Auto) (0-2) % Neut # (Auto) (3941-9359) /uL Lymph # (Auto) (2274-5818) /uL Collier # (Auto) (0-900) /uL Eos # (Auto) (0-450) /uL Baso # (Auto) (0-100) /uL PT (10.1-12.7) SECONDS INR (0.9-1.3) APTT (26.4-36.2) SECONDS Sodium (137-145) mmol/L Potassium (3.4-5.1) mmol/L Chloride (98-107) mmol/L Carbon Dioxide (22-32) mmol/L BUN (9-20) mg/dL Creatinine (0.66-1.25) mg/dL Estimated GFR (>60) mL/min BUN/Creatinine Ratio (6-22) Glucose (80-110) mg/dL Calcium (8.4-10.2) mg/dL Magnesium 1.8 (1.6-2.3) mg/dL Total Bilirubin (0.2-1.3) mg/dL AST (17-59) IU/L ALT (<50) IU/L Alkaline Phosphatase (38-126) U/L Total Creatine Kinase 114 (55-170) U/L CK-MB (CK-2) 1.78 (<2.37) ng/mL CK-MB (CK-2) Rel Index 1.6 (1.5-5.0) % Troponin I < 0.012 (0.01-0.034) ng/mL NT-Pro-B Natriuret Pep 171 H (<125) pg/mL Total Protein (6.3-8.2) g/dL Albumin (3.5-5.0) g/dL Globulin (1.7-4.1) g/dL Albumin/Globulin Ratio (1.0-2.8) Lipase (23-300) U/L SARS-CoV-2 (PCR) Negative (Negative) Imaging Data Chest x-ray: Radiologist's Impression: [address] [place] [id number] ReportSigned Patient: Conner Woods MMR#: [id number]: 8Acct:[id number]/Sex: 60 / MDate of Service: 11/21/20Loc: EDAccession Number: [id number] Procedure: XR chest 1V Ordering Provider: Vipin Bowman D.O. PROCEDURE: XR CHEST 1V INDICATIONS: chest pain TECHNIQUE: One view of the chest was acquired. COMPARISON: [facility], CHEST 2 VIEW, 01/10/2017, 12:08. FINDINGS: Surgical changes and devices: Left chest wall 2 lead cardiac device with the leads overlying the expected location of the right atrium and right ventricle. No definite fracturing. Lungs and pleura: Lungs are clear. No pleural effusions or pneumothorax. Mediastinum: Mediastinal contours appear normal. Heart size is along the upper limits of slightly enlarged. Bones and chest wall: No suspicious bony lesions. Overlying soft tissues appear unremarkable. IMPRESSION: Heart size is along the upper limits of normal to slightly enlarged, unchanged. Imaged lungs are clear. Two lead cardiac device with leads overlying the expected location of the right atrium and right Ventricle Dictated by: Shawn Shepherd D.O. on 11/21/2020 at 10:53 Approved by: Shawn Shepherd D.O. on 11/21/2020 at 10:54 ECG Data Attestation: I personally reviewed and interpreted this ECG as follows: Interpretation: Atrial paced. Ventricular rate 60. P.r. 212. QRS 108. Vewed by Dr Bowman [facility] Narrative Medical decision making narrative: The patient is a 60-year-old male with significant cardiac history including stents, reduced ejection fraction who presents with a chief complaint of chest discomfort throughout the past week. EKG has no acute findings. Initial troponin is negative. I spoke with Dr. Sauer from [facility], on-call for the patient's sales and marketing professional Dr. Brady 2nd negative troponin he can be discharged home with clinic follow-up. Patient had a repeat troponin a just over 2 hours which was also negative. I discussed at length the importance of following up with primary care provider as well as sales and marketing professional in the next few days. Discussed come back to the ER for acute concerns such as concern of heart attack, stroke, chest pain shortness of breath. Patient has no questions or concerns upon discharge and states understanding of return precautions as well as follow-up care. <Vipin Bowman DO - Last Filed: 11/21/20 14:41> Lab Data Labs: Lab Results 11/21/20 11/21/20 11/21/20 Range/Units 11:40 11:40 11:40 WBC 5.9 (4.5-11.0) X10^3/uL RBC 5.31 (4.5-5.9) X10^6/uL Hgb 16.5 (13.5-17.5) g/dL Hct 50.5 (41-53) % MCV 95.2 (80-100) fL MCH 31.2 (26-34) PG MCHC 32.7 (30-36) % RDW 13.3 (11.6-14.8) % Plt Count 187 (150-400) X10^3/uL Neut % (Auto) 66.1 (50-75) % Lymph % (Auto) 17.6 L (25-40) % Collier % (Auto) 13.0 (3-14) % Eos % (Auto) 2.9 (2-4) % Baso % (Auto) 0.4 (0-2) % Neut # (Auto) 3900 (3982-8113) /uL Lymph # (Auto) 1000 L (5489-5886) /uL Collier # (Auto) 800 (0-900) /uL Eos # (Auto) 200 (0-450) /uL Baso # (Auto) 0 (0-100) /uL PT 12.7 (10.1-12.7) SECONDS INR 1.1 (0.9-1.3) APTT 30 (26.4-36.2) SECONDS Sodium 136 L (137-145) mmol/L Potassium 5.0 (3.4-5.1) mmol/L Chloride 105 (98-107) mmol/L Carbon Dioxide 28 (22-32) mmol/L BUN 26 H (9-20) mg/dL Creatinine 1.01 (0.66-1.25) mg/dL Estimated GFR > 60.0 (>60) mL/min BUN/Creatinine Ratio 25.7 H (6-22) Glucose 108 (80-110) mg/dL Calcium 9.1 (8.4-10.2) mg/dL Magnesium (1.6-2.3) mg/dL Total Bilirubin 0.8 (0.2-1.3) mg/dL AST 34 (17-59) IU/L ALT 28 (<50) IU/L Alkaline Phosphatase 57 (38-126) U/L Total Creatine Kinase 126 (55-170) U/L CK-MB (CK-2) 1.79 (<2.37) ng/mL CK-MB (CK-2) Rel Index 1.4 L (1.5-5.0) % Troponin I < 0.012 (0.01-0.034) ng/mL NT-Pro-B Natriuret Pep (<125) pg/mL Total Protein 7.2 (6.3-8.2) g/dL Albumin 4.2 (3.5-5.0) g/dL Globulin 3.0 (1.7-4.1) g/dL Albumin/Globulin Ratio 1.4 (1.0-2.8) Lipase 61 (23-300) U/L SARS-CoV-2 (PCR) (Negative) 11/21/20 11/21/20 11/21/20 Range/Units 11:40 13:16 13:45 WBC (4.5-11.0) X10^3/uL RBC (4.5-5.9) X10^6/uL Hgb (13.5-17.5) g/dL Hct (41-53) % MCV (80-100) fL MCH (26-34) PG MCHC (30-36) % RDW (11.6-14.8) % Plt Count (150-400) X10^3/uL Neut % (Auto) (50-75) % Lymph % (Auto) (25-40) % Collier % (Auto) (3-14) % Eos % (Auto) (2-4) % Baso % (Auto) (0-2) % Neut # (Auto) (8942-5088) /uL Lymph # (Auto) (4839-4849) /uL Collier # (Auto) (0-900) /uL Eos # (Auto) (0-450) /uL Baso # (Auto) (0-100) /uL PT (10.1-12.7) SECONDS INR (0.9-1.3) APTT (26.4-36.2) SECONDS Sodium (137-145) mmol/L Potassium (3.4-5.1) mmol/L Chloride (98-107) mmol/L Carbon Dioxide (22-32) mmol/L BUN (9-20) mg/dL Creatinine (0.66-1.25) mg/dL Estimated GFR (>60) mL/min BUN/Creatinine Ratio (6-22) Glucose (80-110) mg/dL Calcium (8.4-10.2) mg/dL Magnesium 1.8 (1.6-2.3) mg/dL Total Bilirubin (0.2-1.3) mg/dL AST (17-59) IU/L ALT (<50) IU/L Alkaline Phosphatase (38-126) U/L Total Creatine Kinase 114 (55-170) U/L CK-MB (CK-2) 1.78 (<2.37) ng/mL CK-MB (CK-2) Rel Index 1.6 (1.5-5.0) % Troponin I < 0.012 (0.01-0.034) ng/mL NT-Pro-B Natriuret Pep 171 H (<125) pg/mL Total Protein (6.3-8.2) g/dL Albumin (3.5-5.0) g/dL Globulin (1.7-4.1) g/dL Albumin/Globulin Ratio (1.0-2.8) Lipase (23-300) U/L SARS-CoV-2 (PCR) Negative (Negative) Discharge Plan Departure Patient Disposition: Home Clinical Impression: Chest discomfort Chest pain Qualifiers: Chest pain type: unspecified Qualified Code(s): R07.9 - Chest pain, unspecified Instructions: DI for Atypical Chest Pain, DI for Chest Pain Activity Restrictions/Additional Instructions: Thank you for trusting us with your care today As discussed, your lab work resulted well and your EKG looks good today I spoke with Dr. Sauer from [facility] would like you to follow-up as an outpatient with your sales and marketing professional Please call them to get in Please also follow-up with primary care provider in the next few days. Please come back to emergency department for any acute concerns such as concerns of heart attack stroke etcetera. Prescriptions: No Action albuterol sulfate [Ventolin HFA] 90 MCG/PUFF HFA aerosol inhaler 2 puff INH Q4HP PRNQty: 1 RF: 4 aspirin 81 MG tablet,chewable 81 mg PO QDAY Qty: 0 RF: 0 nitroglycerin [Nitrostat] 0.4 mg tablet, sublingual 0.4 mg sublingual Q5-15M PRN (Reason: chest pain) Qty: 0 RF: 0 spironolactone 25 mg tablet 25 mg PO .QEVENING Qty: 0 RF: 0 hydrocortisone [Proctosol HC] 2.5 % cream with perineal applicator 1 applic NC TID PRN (Reason: itching) Qty: 1 RF: 2 atorvastatin 80 mg tablet 80 mg PO BEDTIME RF: 0 carvedilol 12.5 mg tablet 12.5 mg PO BID RF: 0 clopidogrel 75 mg tablet 75 mg PO .QEVENING RF: 0 omeprazole 40 mg capsule,delayed release(DR/EC) 40 mg PO DAILY RF: 0 Dupixent Syringe 300 mg/2 mL syringe 300 mg SUBCUT Q2W RF: 0 Entresto 49-51 mg tablet 1 tab PO BID RF: 0 Entresto 24-26 mg tablet 1 tab PO BID RF: 0 cyclobenzaprine 5 mg tablet 5 mg PO TID PRN (Reason: Muscle spasms) Qty: 30 RF: 1 prednisone 10 mg tablet 10 mg PO DAILY PRN (Reason: Anti-inflammatory) Qty: 15 RF: 1 diclofenac sodium 75 mg tablet,delayed release (DR/EC) 75 mg PO BID PRN (Reason: pain in back) Qty: 60 RF: 0 Referrals: Jozef Ortiz MD [Primary Care Provider] - <Vipin Bowman DO - Last Filed: 11/21/20 14:41> [facility] Attestation: Dr Bowman Co-Sign Statement: I was available for consultation during this patient's emergency department visit. This chart is signed by myself for administrative purposes only. I did not have direct contact with this patient during this visit. They were seen independently by the APC.
[2020-11-21 13:36] LABS: COVID19 -Nasal RAPID Negative (Negative)
[2020-11-21 14:07] LABS: Creatine Kinase 114 U/L (55-170)
[2020-11-21 14:20] LABS: Troponin I < 0.012 ng/mL (0.01-0.034)
[2020-11-21 14:22] LABS: CKMB % Relative Index 1.6 % (1.5-5.0); Creatine Kinase MB 1.78 ng/mL (<2.37)
== END 2020-11-21 14:38 | disposition home or self-care (01) ==
PROVIDERS: Emergency Medicine; Emergency Provider Nurse Practitioner Family; PCP Internal Medicine
DX: R07.9 Chest pain, unspecified (principal); Z95.5 Presence of coronary angioplasty implant and graft; I25.10 Atherosclerotic heart disease of native coronary artery without angina pectoris; Z79.82 Long term (current) use of aspirin; E78.5 Hyperlipidemia, unspecified; Z20.822 Contact with and (suspected) exposure to COVID-19
CPT/HCPCS: 36415; 71045; 80053; 82550; 82553; 83690; 83735; 83880; 84484; 85025; 85610; 85730; 87635; 93005; 93010; 99283; 99284; C9803

== ENCOUNTER → 2020-12-10 10:20 | Outpatient (CLI) | payer OTHER, SELFPAY ==
--- NOTE | 2020-12-10 10:34 | DI.CT.S_ITS ---
PROCEDURE: CT LUMBAR SPINE W CON COMPARISON: [facility], MR, MR LUMBAR SPINE WO CON, 11/25/2018, 16:25. INDICATIONS: Post laminectomy syndrome FINDINGS: There are no visualized fractures or dislocations. There is trace retrolisthesis of L2 on L3. No suspicious osseous lesions. Moderate disc space narrowing is present at L1-L2, [id number] L2-3 with partial vacuum disc and minimal throughout the remainder of the lumbar spine. There is suspected posterior hemilaminectomy at L4-5. The spinal canal demonstrates an overall appearance of congenital narrowing. Mild disc bulge is present at L1-L2, L2-3 including left posterior lateral protrusion, mild disc bulge at L3-4, L4-5. There is moderate canal narrowing at L1-L2, L2-3, moderate to severe L3-4, moderate L4-5. There is minimal bilateral foraminal narrowing at L1-L2, moderate left and mild right at L2-3, moderate bilateral L3-4, moderate bilateral L4-5 and moderate bilateral L5-S1. Multilevel facet arthropathy is present. Overall appearance is stable. Visualized portions of the intra-abdominal and pelvic soft tissues are unremarkable. IMPRESSION: 1. Stable interval exam demonstrating multilevel disc bulges. 2. 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 3. Multilevel foraminal narrowing most severe at L4-5 and L5-S1 secondary to facet arthropathy is stable. Dictated by: Viki Briseno M.D. on 12/10/2020 at 12:30 Approved by: Viki Briseno M.D. on 12/10/2020 at 12:47
== END ==
PROVIDERS: PCP Internal Medicine; Referring Provider Physical Medicine & Rehabilitation; Visit Provider Physical Medicine & Rehabilitation
DX: M96.1 Postlaminectomy syndrome, not elsewhere classified (principal); M47.816 Spondylosis without myelopathy or radiculopathy, lumbar region; M47.817 Spondylosis without myelopathy or radiculopathy, lumbosacral region; M51.26 Other intervertebral disc displacement, lumbar region; M48.061 Spinal stenosis, lumbar region without neurogenic claudication; M48.07 Spinal stenosis, lumbosacral region
CPT/HCPCS: 72132; Q9967

== ENCOUNTER → 2021-01-03 14:52 | Outpatient (CLI) | payer OTHER, SELFPAY ==
[2021-01-03 17:40] LABS: COVID19 -Nasal RAPID Negative (Negative)
== END ==
PROVIDERS: PCP Internal Medicine; Visit Provider Physical Medicine & Rehabilitation
DX: Z20.822 Contact with and (suspected) exposure to COVID-19 (principal)
CPT/HCPCS: 87635; C9803

== ENCOUNTER 2021-01-04 14:59 | Outpatient (CLI) | payer OTHER, SELFPAY ==
[2021-01-04] VITALS (8 sets, daily range): BP systolic 111–123; BP diastolic 59–80; PULSE 60–68; RESP 16–22; TEMP 36.4–36.6; O2SAT 97–100
--- NOTE | 2021-01-04 14:59 | DI.RAD.S_ITS ---
PROCEDURE: PAIN L/S FACET INJ/BLK 1ST RASHAUN COMPARISON: [facility], CT, CT LUMBAR SPINE W CON, 12/10/2020, 10:26. INDICATIONS: SPONDYLOSIS FINDINGS: Bilateral spinal needles are seen at the L4-L5 and L5-S1 levels, as labeled on the images. The appropriate positions of the tips of the needles were confirmed with injection of a small amount of iodinated contrast. IMPRESSION: Intraprocedural examination within normal limits. Dictated by: Loco Artis M.D. on 01/04/2021 at 15:27 Approved by: Loco Artis M.D. on 01/04/2021 at 15:28
[2021-01-04] MEDS: fentaNYL 100 MCG/2 ML INJ 50 MCG IV (15:20)
[2021-01-04] MEDS: MIDAZOLAM 5 MG/5 ML VIAL IV (15:24)
[2021-01-04] MEDS: BUPIVACAINE 0.5% (PF) VIAL 2 ML INJ (15:26)
[2021-01-04] MEDS: LIDOCAINE 1% 20 ML 10 ML INJ (15:26)
[2021-01-04] MEDS: IOPAMIDOL 15 ML VIAL 3 ML INJ (15:27)
[2021-01-04] MEDS: BETAMETHASONE 30 MG/5 ML MDV 12 MG INJ (15:27)
--- NOTE | 2021-01-04 15:34 | P.PCN_ITS ---
Date/Time/Diagnoses Date of procedure: 01/04/21 Time of procedure: 15:34 Pre-procedure diagnosis: 1. FACET ARTHROPATHY 2. AXIAL LBP 3. MULTILEVEL DDD Post-procedure diagnosis: same Procedure Notes Procedure: 1. FLUOROSCOPICALLY GUIDED CONTRAST CONTROLLED FACET JOINT INJECTIONS BILATERAL L4/5, L5/S1 Indications: Conner is referred by Dr. Ortiz for treatment of Axial LBP Physician: Arnaud Almodovar Total Fluoroscopy time (seconds): 11 Total sedation minutes: 13 Complications: none Procedure in detail & Post-procedure care: FINDINGS Multilevel Facet Arthropathy with Clinically significant axial LBP DESCRIPTION OF PROCEDURE Fluoroscopically guided, contrast-controlled bilateral L4/5, L5/S1 facet joint injections. Following review of allergy and review of potential side effects and complications, including, but not necessarily limited to, infection, allergic reaction, local tissue breakdown, stroke, temporary or permanent nerve injury, paralysis, and possible , the patient indicated that the patient understood and agreed to proceed. An informed consent document was signed by the patient, witnessed by a nurse, and placed in the patient's chart. Additionally, other treatment options including medications, modalities, and physical therapy were reviewed with the patient. After review of previous anaesthesic history and IV conscious sedation the patient was deemed safe to proceed with today?s procedure with IV conscious sedation as ASA class II designation. Safety time-out was performed to confirm patient ID, procedure to be performed and site of procedure. IV sedation was accomplished with a combination of 3mg of Versed and 50mcg of Fentanyl was administered by the RN after DO order, titrated to patient comfort during the course of the procedure while the patient remained responsive to all verbal commands In the prone position, following sterile prep and drape of the lumbar region, the posterior aspect of the L4/5, L5/S1 facet joints were identified fluoroscopically. The skin was anesthetized via a 25-gauge 1.5inch needle with 1% lidocaine solution into the corresponding facet joints. At this point, a 22- gauge 3.5-inch spinal needle was atraumatically introduced and advanced under fluoroscopic guidance into the corresponding facet joints. Following negative aspiration, injections of approximately 0.2cc of Isovue 200 confirmed interarti cular placement without vascular uptake. The identical procedure was then performed at the L4/5, L5/S1 facet joints on the left. Radiological data, including multiple fluoroscopic views of the lumbosacral spine, reveal a spinal needle at the L4/5, L5/S1 facet joints bilaterally. Subsequent views show flow of contrast material both superiorly and inferiorly within the joint space without vascular or intrathecal uptake. At this point, a total of 0.5cc including a mixture of 0.25cc Marcaine and 0.25cc betamethasone was injected without complication into each of the corresponding facet joints. The patient tolerated the procedure well without signs or symptoms of complications prior to transfer to the recovery area continued monitoring without incident. The patient was then transferred to the recovery area where they were observed for an appropriate period of time after the injection. The patient reported a VAS score of 7 prior to the procedure and a post- procedure VAS of 0. POST OP INSTRUCTIONS The patient was provided a Pain Log to continue to record their response to the target-specific procedure prior to follow-up visit with their referring physician. Additionally, specific post-injection care instructions and a contact number to our office were provided if concerns arise regarding possible complications associated with the procedure are suspected.
== END 2021-01-04 15:55 | disposition home or self-care (01) ==
PROVIDERS: PCP Internal Medicine; Referring Provider Physical Medicine & Rehabilitation; Visit Provider Physical Medicine & Rehabilitation
DX: M47.816 Spondylosis without myelopathy or radiculopathy, lumbar region (principal); M47.817 Spondylosis without myelopathy or radiculopathy, lumbosacral region; M51.36 Other intervertebral disc degeneration, lumbar region; M51.37 Other intervertebral disc degeneration, lumbosacral region; M54.5 Low back pain
CPT/HCPCS: 64493; 64494; 99152; J0702; J2250; J3010

== ENCOUNTER → 2021-03-14 09:07 | Outpatient (CLI) | payer OTHER, SELFPAY ==
[2021-03-14 12:03] LABS: COVID19 -Nasal RAPID Negative (Negative)
== END ==
PROVIDERS: PCP Internal Medicine; Visit Provider Student in an Organized Health Care Education/Training Program
DX: Z01.812 Encounter for preprocedural laboratory examination (principal); Z20.822 Contact with and (suspected) exposure to COVID-19
CPT/HCPCS: 87635

== ENCOUNTER 2021-03-15 13:00 | Outpatient (CLI) | payer OTHER, SELFPAY ==
[2021-03-15] VITALS (10 sets, daily range): BP systolic 91–120; BP diastolic 53–65; PULSE 60–67; RESP 16–21; TEMP 36.2; O2SAT 99–100
--- NOTE | 2021-03-15 13:01 | DI.RAD.S_ITS ---
PROCEDURE: PAIN L/S TRANSFORAMINAL INJECT INDICATIONS: SPONDYLOSIS COMPARISON: [facility], XA, PAIN L/S FACET INJ/BLK 1ST RASHAUN, 01/04/2021, 15:21. FINDINGS: Fluoroscopic spot filming was performed to verify placement of a spinal needle at the L4-L5 level, as labeled on the films. Appropriate location of the needle tip was confirmed by injection of iodinated contrast. IMPRESSION: Intraprocedural examination within normal limits. Dictated by: Loco Artis M.D. on 03/15/2021 at 14:15 Approved by: Loco Artis M.D. on 03/15/2021 at 14:15
[2021-03-15] MEDS: fentaNYL 100 MCG/2 ML INJ 50 MCG IV (13:46)
[2021-03-15] MEDS: BUPIVACAINE 0.25% (PF) VIAL 2 ML INJ (13:50)
[2021-03-15] MEDS: DEXAMETHASONE 10 MG/ML VIAL 20 MG INJ (13:51)
[2021-03-15] MEDS: IOPAMIDOL 15 ML VIAL 3 ML INJ (13:51)
[2021-03-15] MEDS: methylPREDNISolone acetate 80 MG/ML VIAL INJ (13:52)
[2021-03-15] MEDS: MIDAZOLAM 5 MG/5 ML VIAL IV (14:01)
--- NOTE | 2021-03-15 14:09 | P.PCN_ITS ---
Date/Time/Diagnoses Date of procedure: 03/15/21 Time of procedure: 14:09 Pre-procedure diagnosis: 1. FORAMINAL STENOSIS WITH LE SYMPTOMS Post-procedure diagnosis: same Procedure Notes Procedure: 1. FLUOROSCOPICALLY GUIDED CONTRAST CONTROLLED TRANSFORAMINAL EPIDURAL STEROID INJECTION - RIGHT L4/5 TFESI Indications: Conner is referred by Dr. Armas and Diana for treatment of Foraminal Stenosis with Right LE Symptoms Physician: Arnaud Almodovar Total Fluoroscopy time (seconds): 16 Total sedation minutes: 20 Complications: none Procedure in detail & Post-procedure care: FINDINGS Foraminal Nerve Root Compression secondary to disc disease and facet hypertrophy DESCRIPTION OF PROCEDURE Following review of allergy and review of potential side effects and complications, including, but not necessarily limited to, infection, allergic reaction, local tissue breakdown, stroke, temporary or permanent nerve injury, paralysis, and possible , the patient indicated that the patient understood and agreed to proceed. An informed consent document was signed by the patient, witnessed by a nurse, and placed in the patient's chart. Additionally, other treatment options including medications, modalities, and physical therapy were reviewed with the patient. After review of previous anaesthesic history and IV conscious sedation the patient was deemed safe to proceed with today?s procedure with IV conscious sedation as ASA class II designation. Safety time-out was performed to confirm patient ID, procedure to be performed and site of procedure. IV sedation was accomplished with a combination of 4mg of Versed and 50mcg of Fentanyl was administered by the RN after DO order, titrated to patient comfort during the course of the procedure while the patient remained responsive to all verbal commands In the prone position following sterile prep and drape of the lumbar region, the right L4/5 posterior neuroforamen was identified fluoroscopically. The skin was anesthetized via a 25-gauge 1.5-inch needle with 1% lidocaine solution. At this point, a 25-gauge 3.5-inch spinal needle was atraumatically introduced and advanced under fluoroscopic guidance through the posterior right L4/5 neuroforamen to approximately the anterior aspect of the canal. Depth was confirmed on lateral view. Following negative aspiration, injection of approximately 1.5cc of Isovue 200 under live fluoroscopy in the AP view confirmed excellent flow along the nerve root, into the epidural space without vascular or intrathecal uptake observed Radiological data, including multiple fluoroscopic views of the lumbosacral spine, reveal a spinal needle at the right L4/5 posterior neuroforamen. Subsequent views show flow of contrast material flowing superiorly and inferiorly along the nerve root confirming epidural flow. Subsequently, a test dose of 1.5 cc of 1% lidocaine solution was administered and patient was observed for two minutes for signs or symptoms of complications, including abdominal pain, shortness of breath, bilateral upper or lower extremity weakness, nausea and vomiting, prior to steroid injection. At this point, a total of 3cc or 20mg of dexamethasone and 80mg of Depo medrol was injected without incident. The procedure tolerated the procedure well without signs or symptoms of complications prior to transfer to the recovery area continued monitoring without incident. The patient was then transferred to the recovery area where they were observed for an appropriate time after the injection. The patient reported a VAS score of 7 prior to the procedure and a post- procedure VAS of 0. POST OP INSTRUCTIONS The patient was provided a Pain Log to continue to record their response to the target-specific procedure prior to follow-up visit with their referring physician. Additionally, specific post-injection care instructions and a contact number to our office were provided if concerns arise regarding possible complications associated with the procedure are suspected.
--- NOTE | 2021-03-15 16:20 | PC.NURSE ---
Pt attempted to ambulated/stand on his own with nursing assistance and Dr Almodovar at times. Unable to stand and maintain balance at all at 1432, 1455, 1535. Able to stand safely at 1610-slightly slow, pt states he feels steady and safe. Dr Almodovar aware. Will have assistance from at home. Pt has no pain at discharge.
== END 2021-03-15 16:10 | disposition home or self-care (01) ==
PROVIDERS: PCP Internal Medicine; Referring Provider Physical Medicine & Rehabilitation; Visit Provider Physical Medicine & Rehabilitation
DX: M54.17 Radiculopathy, lumbosacral region (principal); M96.1 Postlaminectomy syndrome, not elsewhere classified; M48.061 Spinal stenosis, lumbar region without neurogenic claudication
CPT/HCPCS: 64483; 99152; J0702; J1040; J1100; J2250; J3010

== ENCOUNTER → 2021-03-21 11:37 | Outpatient (CLI) | payer OTHER, SELFPAY ==
[2021-03-21 15:10] LABS: COVID19 -Nasal RAPID Negative (Negative)
== END ==
PROVIDERS: PCP Internal Medicine; Referring Provider Physician Assistant; Visit Provider Physician Assistant
DX: Z01.812 Encounter for preprocedural laboratory examination (principal); Z20.822 Contact with and (suspected) exposure to COVID-19
CPT/HCPCS: 87635

== ENCOUNTER 2021-03-22 07:06 | Day surgery (SDC) | payer OTHER, SELFPAY ==
[2021-03-22] MEDS: PROPARACAINE 0.5% OPHTH SOL 2 DROPS EYE-OP (07:38)
[2021-03-22] MEDS: CATARACT EYE COMPOUND (10 DROPS/SYRINGE) 3 DROPS EYE-OP (07:39)
[2021-03-22 07:40] VITALS: BP 104/66; PULSE 59; RESP 14; TEMP 36.2; O2SAT 100; BMI 35.6
--- NOTE | 2021-03-22 08:01 | PM.PREOP ---
Pre-operative Note Interval Note History & Physical reviewed/Exam performed by Physician: Yes Changes to H&P: No
--- NOTE | 2021-03-22 08:01 | PM.OP.1 ---
Operative Date/Time/Diagnoses Pre-op diagnosis: Nuclear Cataract Left eye Post-op diagnosis: same Procedure & Clinicians Same procedure as scheduled: Yes Surgeon: Edwardo Santana Anesthesia Type: MAC +/- and Sedation Operative Notes Procedure in detail: Patient brought to the operating suite. Tetracaine drops placed in the left eye. Patient was prepped and draped in sterile manner. Wire lid speculum was placed in the eye. Betadine drops were placed on the eye. This was irrigated. Lidocaine jelly was placed on the eye. A paracentesis port was created with a side-port blade. 0.1 mL 1% preservative free lidocaine was injected into the anterior chamber. The anterior chamber was deepened with viscoelastic. 2.6 mm keratome was used to create a temporal clear corneal incision. Cystotome and Utrata forceps were used to create continuous tear capsulorrhexis. The patient moved his eye suddenly during the capsulorrhexis creation which became irregular and this was rescued after more intravenous sedation. Balanced salt solution was used to hydro dissect the nucleus. The phacoemulsification handpiece was inserted and the nucleus was removed using the stop and chop technique. The irrigation aspiration handpiece was inserted and the remaining cortex was removed. Anterior chamber was deepened with viscoelastic. An Mccullough DIB00 intraocular lens with a power of 16.0 was injected into the capsular bag. Irrigation aspiration handpiece was inserted and the remaining viscoelastic was removed. Incision was hydrated with balanced salt solution and found to be leak free with pressure with Weck-Silvia sponges. 0.1 mL Vigamox injected anterior chamber. 0.3 mL Kenalog 10 mg was injected subconjunctivally. Lid speculum was removed. The patient left the operating room in excellent condition. Complications: none Post-operative Condition: stable Disposition: same day surgery
[2021-03-22] MEDS: TRIAMCINOLONE 50 MG/5 ML VIAL INJ (08:14)
[2021-03-22] MEDS: CHONDROIDTIN/SOD HYALURONATE 1.05 ML SYRINGE INTRAOCULA (08:14)
[2021-03-22] MEDS: BALANCED SALT IRRIG SOLN NO.2 500 ML, EPINEPHrine 1 MG IRR (08:14)
[2021-03-22] MEDS: PHENYLEPHRINE/LIDOCAINE VIAL (OR) 0.2 ML EYE-OP (08:14)
[2021-03-22] MEDS: TETRACAINE 0.5% OPHTH DROPS 4 ML 2 DROPS EYE-OP (08:15)
[2021-03-22] MEDS: LIDOCAINE 2% (GLYDO) 6 ML GEL TOP (08:15)
[2021-03-22] MEDS: MOXIFLOXACIN INJ 4 MG/0.8 ML VIAL 0.5 MG EYE-OP (08:15)
--- NOTE | 2021-03-22 08:25 | SUR.OPER ---
Supine on eye stretcher, head on extension cradle secured with tape. Arms tucked at sides with blanket. Pillow under knees.
[2021-03-22 08:52] VITALS: BP 105/69; PULSE 60; RESP 16; TEMP 36.3; O2SAT 97
== END 2021-03-22 08:55 | disposition home or self-care (01) ==
PROVIDERS: PCP Internal Medicine; Referring Provider Internal Medicine; Visit Provider Ophthalmology
PROC: (CPT 66984; principal; 2021-03-22 08:15)
DX: H25.12 Age-related nuclear cataract, left eye (principal)
CPT/HCPCS: 66984; J0171; J2250; J2704; J3010; J3301

== ENCOUNTER → 2021-04-04 13:12 | Outpatient (CLI) | payer OTHER, SELFPAY ==
[2021-04-04 15:49] LABS: COVID19 -Nasal RAPID Negative (Negative)
== END ==
PROVIDERS: PCP Internal Medicine; Visit Provider Physician Assistant
DX: Z01.812 Encounter for preprocedural laboratory examination (principal); Z20.822 Contact with and (suspected) exposure to COVID-19
CPT/HCPCS: 87635

== ENCOUNTER 2021-04-05 07:04 | Day surgery (SDC) | payer OTHER, SELFPAY ==
[2021-04-05] MEDS: PROPARACAINE 0.5% OPHTH SOL 2 DROPS EYE-OP (07:20)
[2021-04-05 07:22] VITALS: BP 98/64; PULSE 66; RESP 14; TEMP 36; O2SAT 98; BMI 36.3
[2021-04-05] MEDS: CATARACT EYE COMPOUND (10 DROPS/SYRINGE) 3 DROPS EYE-OP (07:30)
--- NOTE | 2021-04-05 08:02 | PM.PREOP ---
Pre-operative Note Interval Note History & Physical reviewed/Exam performed by Physician: Yes Changes to H&P: No
--- NOTE | 2021-04-05 08:02 | PM.OP.1 ---
Operative Date/Time/Diagnoses Pre-op diagnosis: Nuclear cataract right eye Procedure & Clinicians Procedure: Cataract Surgery Same procedure as scheduled: Yes Surgeon: Edwardo Santana Anesthesia Type: MAC +/- and Sedation Operative Notes Procedure in detail: Patient brought to the operating suite. Tetracaine drops placed in the right eye. Patient was prepped and draped in sterile manner. Wire lid speculum was placed in the eye. Betadine drops were placed on the eye. This was irrigated. Lidocaine jelly was placed on the eye. A paracentesis port was created with a side-port blade. 0.1 mL 1% preservative free lidocaine was injected into the anterior chamber. The anterior chamber was deepened with viscoelastic. 2.6 mm keratome was used to create a temporal clear corneal incision. Cystotome and Utrata forceps were used to create continuous tear capsulorrhexis. Balanced salt solution was used to hydro dissect the nucleus. The phacoemulsification handpiece was inserted and the nucleus was removed using the stop and chop technique. The irrigation aspiration handpiece was inserted and the remaining cortex was removed. Anterior chamber was deepened with viscoelastic. An Mccullough DIB00 intraocular lens with a power of 16.5 was injected into the capsular bag. Irrigation aspiration handpiece was inserted and the remaining viscoelastic was removed. Incision was hydrated with balanced salt solution and found to be leak free with pressure with Weck-Silvia sponges. 0.1 mL Vigamox injected anterior chamber. 0.3 mL Kenalog 10 mg was injected subconjunctivally. Lid speculum was removed. The patient left the operating room in excellent condition. Complications: none Post-operative Condition: stable Disposition: same day surgery
[2021-04-05] MEDS: LIDOCAINE 2% (GLYDO) 6 ML GEL TOP (08:17)
[2021-04-05] MEDS: MOXIFLOXACIN INJ 4 MG/0.8 ML VIAL 0.5 MG EYE-OP (08:17)
[2021-04-05] MEDS: CHONDROIDTIN/SOD HYALURONATE 1.05 ML SYRINGE INTRAOCULA (08:17)
[2021-04-05] MEDS: TETRACAINE 0.5% OPHTH DROPS 4 ML 2 DROPS EYE-OP (08:18)
[2021-04-05] MEDS: PHENYLEPHRINE/LIDOCAINE VIAL (OR) 0.2 ML EYE-OP (08:18)
[2021-04-05] MEDS: TRIAMCINOLONE 50 MG/5 ML VIAL INJ (08:18)
[2021-04-05] MEDS: BALANCED SALT IRRIG SOLN NO.2 500 ML, EPINEPHrine 1 MG IRR (08:19)
[2021-04-05 08:31] VITALS: BP 88/60; PULSE 67; RESP 16; TEMP 36.4; O2SAT 93
--- NOTE | 2021-04-05 08:40 | SUR.PHASEII ---
Patient sitting up drinking cranberry juice without difficulty. VSS. Daughter called for pickup.
== END 2021-04-05 08:45 | disposition home or self-care (01) ==
PROVIDERS: PCP Internal Medicine; Referring Provider Ophthalmology; Visit Provider Ophthalmology
PROC: (CPT 66984; principal; 2021-04-05 08:15)
DX: H25.11 Age-related nuclear cataract, right eye (principal); I25.10 Atherosclerotic heart disease of native coronary artery without angina pectoris; E78.5 Hyperlipidemia, unspecified
CPT/HCPCS: 66984; J0171; J2250; J2704; J3010; J3301

== ENCOUNTER → 2021-05-31 13:49 | Outpatient (CLI) | payer OTHER, SELFPAY ==
[2021-05-31 14:52] LABS: COVID19 -Nasal RAPID Negative (Negative)
== END ==
PROVIDERS: PCP Internal Medicine; Visit Provider Physical Medicine & Rehabilitation
DX: Z20.822 Contact with and (suspected) exposure to COVID-19 (principal)
CPT/HCPCS: 87635; C9803

== ENCOUNTER 2021-06-02 11:01 | Outpatient (CLI) | payer OTHER, SELFPAY ==
[2021-06-02] VITALS (7 sets, daily range): BP systolic 114–141; BP diastolic 73–77; PULSE 60–66; RESP 12–19; TEMP 36; O2SAT 99–100
--- NOTE | 2021-06-02 11:05 | DI.RAD.S_ITS ---
PROCEDURE: PAIN L/S FACET INJ/BLK 1ST RASHAUN COMPARISON: [facility], , PAIN L/S FACET INJ/BLK 1ST RASHAUN, 01/04/2021, 15:21. INDICATIONS: Bilateral L4, L5 and S1 MBB FINDINGS: Fluoroscopic spot filming was performed to verify placement of spinal needles on both sides at the L4, L5, and S1 levels, as labeled on the films. Appropriate location of the needle tips was confirmed by injection of iodinated contrast. IMPRESSION: Intraprocedural examination within normal limits. Dictated by: Loco Artis M.D. on 06/02/2021 at 11:52 Approved by: Loco Artis M.D. on 06/02/2021 at 12:03
[2021-06-02] MEDS: fentaNYL 100 MCG/2 ML INJ 50 MCG IV (11:41)
[2021-06-02] MEDS: MIDAZOLAM 5 MG/5 ML VIAL IV (11:41)
[2021-06-02] MEDS: BUPIVACAINE 0.5% (PF) VIAL 5 ML INJ (11:46)
[2021-06-02] MEDS: LIDOCAINE 1% 20 ML 10 ML INJ (11:46)
[2021-06-02] MEDS: IOPAMIDOL 15 ML VIAL 3 ML INJ (11:46)
--- NOTE | 2021-06-02 12:00 | PM.PROC.IR.1 ---
Date/Time/Diagnoses Date of procedure: 06/02/21 Time of procedure: 12:00 Pre-procedure diagnosis: 1. FACET ARTHROPATHY Post-procedure diagnosis: same Procedure Notes Procedure: 1. BILATERAL- L4, L5 and S1 DIAGNOSTIC MB BLOCKS with LA Anesthetic Indications: Conner is referred by Dr. Ortiz for treatment of Bilateral Axial LBP. Physician: Arnaud Almodovar Total Fluoroscopy time (seconds): 12 Total sedation minutes: 14 Complications: none Procedure in detail & Post-procedure care: DESCRIPTION OF PROCEDURE Fluoroscopically guided, contrast-controlled bilateral L4, L5 and S1 medial branch blocks with 0.5cc of 0.5% Marcaine. Following review of allergy and review of potential side effects and complications, including, but not necessarily limited to, infection, allergic reaction, local tissue breakdown, nerve injury, paralysis, stroke and possible , the patient indicated that the patient understood and agreed to proceed. An informed consent document was signed by the patient, witnessed by a nurse, and placed in the patient's chart. After review of previous anaesthesic history and IV conscious sedation the patient was deemed safe to proceed with today's procedure with IV conscious sedation as ASA class II designation. Safety time-out was performed to confirm patient ID, procedure to be performed and site of procedure. IV sedation was accomplished with a combination of 3mg of Versed and 50mcg of Fentanyl was administered by the RN after DO order, titrated to patient comfort during the course of the procedure while the patient remained responsive to all verbal commands In the prone position, following sterile prep and drape of the lumbar region, the right L4, L5 and S1 anatomical location of the medial branch of the dorsal ramus was identified fluoroscopically. Subsequently an anesthetic skin wheal using 1% lidocaine solution was initiated at each of the anatomical spots. Subsequently then a 22-gauge 3.5-inch spinal needle was atraumatically introduced and advanced under fluoroscopic guidance at each of the corresponding sites at the right L4, L5 and S1 MB. After negative aspiration, 0.2cc of Isovue 200 was injected, confirming placement without vascular or intrathecal uptake. Subsequently then 0.5cc of 0.5% Marcaine solution was injected at each of the corresponding sites at the right L4, L5 and S1 medial branch locations. The identical procedure was replicated on the left. The patient tolerated the procedure well without signs or symptoms of complications prior to transfer to the recovery area continued monitoring without incident. Post-procedure, the patient was monitored initiating provocative activities to measure the amount of relief from block of the facetogenic pain. The patient reported a VAS of 7 prior to the procedure and a post-procedure VAS of 1. It has been a pleasure to assist in the diagnostic and therapeutic care of your patient. POST OP INSTRUCTIONS The patient was provided with a Pain Log to complete over the next several hours and subsequent days prior to the patient's follow up with the ordering physician. If the patient has hat lining paster relief to the solution applied, then they may be a candidate for medial branch rhizotomy. The patient is aware, was provided, once again, with a Pain Log and will follow up with the referring physician for review and clinical correlation
== END 2021-06-02 12:15 | disposition home or self-care (01) ==
LOC: RAD 11:03
PROVIDERS: PCP Internal Medicine; Referring Provider Physical Medicine & Rehabilitation; Visit Provider Physical Medicine & Rehabilitation
DX: M47.816 Spondylosis without myelopathy or radiculopathy, lumbar region (principal); M47.817 Spondylosis without myelopathy or radiculopathy, lumbosacral region; M54.5 Low back pain
CPT/HCPCS: 64491; 64493; 64494; 64495; 72020; 99151; 99152; J2250; J3010

== ENCOUNTER → 2021-08-16 08:32 | Outpatient (CLI) | payer OTHER, SELFPAY ==
[2021-08-16 10:06] LABS: Cholesterol 72 mg/dL (140-199); HDL Cholesterol 34 mg/dL (40-60); LDL Cholesterol Calculated 15 mg/dL (<100); Triglycerides 113 mg/dL (35-150)
== END ==
PROVIDERS: PCP Internal Medicine; Referring Provider Internal Medicine Cardiovascular Disease; Visit Provider Internal Medicine Cardiovascular Disease
DX: I25.119 Atherosclerotic heart disease of native coronary artery with unspecified angina pectoris (principal)
CPT/HCPCS: 36415; 80061

== ENCOUNTER → 2021-08-29 11:04 | Outpatient (CLI) | payer OTHER, SELFPAY ==
[2021-08-29 15:04] LABS: COVID19 -Nasal RAPID Negative (Negative)
== END ==
PROVIDERS: PCP Internal Medicine; Visit Provider Physical Medicine & Rehabilitation
DX: Z20.822 Contact with and (suspected) exposure to COVID-19 (principal)
CPT/HCPCS: 87635; C9803

== ENCOUNTER 2021-08-30 09:44 | Outpatient (CLI) | payer OTHER, SELFPAY ==
--- NOTE | 2021-08-30 09:46 | DI.RAD.S_ITS ---
PROCEDURE: PAIN L INTERLAMINAR/CAUDAL INJ INDICATIONS: SPONDYLOSIS COMPARISON: [facility], XA, PAIN L/S TRANSFORAMINAL INJECT, 03/15/2021, 13:51. [facility], XA, PAIN L/S FACET INJ/BLK 1ST RASHAUN, 06/02/2021, 11:44. FINDINGS: Fluoroscopic spot filming was performed to verify placement of a spinal needle at the L2-L3 level, as labeled on the films. Appropriate location of the needle tip was confirmed by injection of iodinated contrast. IMPRESSION: Intraprocedural examination within normal limits. Dictated by: Loco Artis M.D. on 08/30/2021 at 10:43 Approved by: Loco Artis M.D. on 08/30/2021 at 10:44
[2021-08-30 10:30] VITALS: BP 121/77; PULSE 60; RESP 15; TEMP 36.4; O2SAT 100
[2021-08-30 10:58] VITALS: BP 133/83; PULSE 60; RESP 18; O2SAT 100
[2021-08-30 11:04] VITALS: BP 129/71; PULSE 62; RESP 17; O2SAT 100
[2021-08-30] MEDS: MIDAZOLAM 5 MG/5 ML VIAL IV (11:04)
[2021-08-30] MEDS: fentaNYL 100 MCG/2 ML INJ 50 MCG IV (11:04)
[2021-08-30] MEDS: BETAMETHASONE 30 MG/5 ML MDV 12 MG INJ (11:07)
[2021-08-30] MEDS: IOPAMIDOL 15 ML VIAL 3 ML INJ (11:08)
[2021-08-30] MEDS: BUPIVACAINE 0.25% (PF) VIAL 2 ML INJ (11:08)
[2021-08-30] MEDS: DEXAMETHASONE 10 MG/ML VIAL 20 MG INJ (11:09)
[2021-08-30 11:15] VITALS: BP 116/77; PULSE 60; RESP 14; O2SAT 98
[2021-08-30 11:20] VITALS: BP 110/74; PULSE 60; RESP 14; O2SAT 97
[2021-08-30 11:25] VITALS: BP 110/73; PULSE 60; RESP 16; O2SAT 96
--- NOTE | 2021-08-30 11:41 | P.PCN_ITS ---
Date/Time/Diagnoses Date of procedure: 08/30/21 Time of procedure: 11:41 Pre-procedure diagnosis: 1. HNP WITH RADICULAR FEATURES, 2. MULTILEVEL CENTRAL STENOSIS, Post-procedure diagnosis: same Procedure Notes Procedure: 1. FLUOROSCOPICALLY GUIDED CONTRAST CONTROLLED INTERLAMINAR EPIDURAL STEROID INJECTION - L2/3 Indications: Conner is referred by Dr. Ortiz for treatment of Bilateral Foraminal Stenosis L>R LE symptoms. Physician: Arnaud Almodovar Total Fluoroscopy time (seconds): 7 Total sedation minutes: 8 Complications: none Procedure in detail & Post-procedure care: FINDINGS Multilevel Central Spinal Stenosis with Nerve Root Compression DESCRIPTION OF PROCEDURE Fluoroscopically guided, contrast-controlled L2/3 translaminar epidural steroid injection. Following review of allergy and review of potential side effects and complications, including, but not necessarily limited to, infection, allergic reaction, local tissue breakdown, temporary as well as permanent nerve injury, paralysis, stroke and possible , the patient indicated that the patient understood and agreed to proceed. An informed consent document was signed by the patient, witnessed by a nurse, and placed in the patient's chart. Additionally, other treatment options including modalities, medications, and physical therapy were reviewed with the patient. After review of previous anaesthesic history and IV conscious sedation the patient was deemed safe to proceed with today?s procedure with IV conscious sedation as ASA class II designation. Safety time-out was performed to confirm patient ID, procedure to be performed and site of procedure. IV sedation was accomplished with a combination of 3mg Versed and 50mcg of Fentanyl administered by the RN after DO order, titrated to patient comfort during the course of the procedure while the patient remained responsive to all verbal commands. In the prone position, following sterile prep and drape of the lumbar region,the L2/3 translaminar space was identified fluoroscopically. The skin was anesthetized via a 25-gauge, 1.5-inch needle with 1% lidocaine solution. At this point, a 22-gauge short bevel spinal needle was atraumatically introduced and advanced under fluoroscopic guidance into the region of the L2/3 translaminar space. Depth was confirmed on lateral view. Radiological data, including multiple fluoroscopic views of the lumbar spine, reveal a spinal needle at the L2/3 translaminar space. Lateral views then show placement of the needle in the epidural space. Subsequent views show contrast material flowing superiorly and inferiorly in the epidural space. No vascular or intrathecal uptake is observed. At this point, using loss of resistance technique with saline and air, the epidural space was entered. This was confirmed following negative aspiration with injection of approximately 1.5 cc of Isovue 200, showing excellent epidural flow without vascular or intrathecal uptake. At this point, 1 cc of 1% lidocaine solution combined with 4cc or 20mg of dexamethasone and 12mg of betamethasone was injected without incident. The patient tolerated the procedure well without signs or symptoms of complic ations prior to transfer to the recovery area continued monitoring without incident. The patient was then transferred to the recovery area where they were observed for an appropriate period of time after the injection. The patient reported a VAS score of 6 prior to the procedure and a post-procedure VAS of 0. POST OP INSTRUCTIONS The patient was provided a Pain Log to continue to record their response to the target-specific procedure prior to follow-up visit with their referring physician. Additionally, specific post-injection care instructions and a contact number to our office were provided if concerns arise regarding possible complications associated with the procedure are suspected.
== END 2021-08-30 11:38 | disposition home or self-care (01) ==
LOC: RAD 09:45
PROVIDERS: PCP Internal Medicine; Referring Provider Physical Medicine & Rehabilitation; Visit Provider Physical Medicine & Rehabilitation
DX: M51.16 Intervertebral disc disorders with radiculopathy, lumbar region (principal); M48.061 Spinal stenosis, lumbar region without neurogenic claudication
CPT/HCPCS: 62323; J0702; J1100; J2250; J3010

== ENCOUNTER → 2021-10-17 11:13 | Outpatient (CLI) | payer OTHER, SELFPAY ==
[2021-10-17 15:11] LABS: COVID19 -Nasal RAPID Negative (Negative)
== END ==
PROVIDERS: PCP Internal Medicine; Visit Provider Physical Medicine & Rehabilitation
DX: Z20.822 Contact with and (suspected) exposure to COVID-19 (principal)
CPT/HCPCS: 87635; C9803

== ENCOUNTER 2021-10-18 13:45 | Outpatient (CLI) | payer OTHER, SELFPAY ==
[2021-10-18] VITALS (8 sets, daily range): BP systolic 109–132; BP diastolic 63–103; PULSE 60–66; RESP 13–24; TEMP 36.4; O2SAT 95–100
--- NOTE | 2021-10-18 13:46 | DI.RAD.S_ITS ---
PROCEDURE: PAIN L/S TRANSFORAMINAL INJECT INDICATIONS: SPONDYLOSIS COMPARISON: [facility], , PAIN L/S TRANSFORAMINAL INJECT, 03/15/2021, 13:51. FINDINGS: Fluoroscopic spot filming was performed to verify placement of a spinal needle at the L4-L5 level, as labeled on the films. Appropriate location of the needle tip was confirmed by injection of iodinated contrast. IMPRESSION: Intraprocedural examination within normal limits. Dictated by: Loco Artis M.D. on 10/18/2021 at 14:31 Approved by: Loco Artis M.D. on 10/18/2021 at 14:31
[2021-10-18] MEDS: MIDAZOLAM 5 MG/5 ML VIAL IV (14:28)
[2021-10-18] MEDS: fentaNYL 100 MCG/2 ML INJ 50 MCG IV (14:28)
[2021-10-18] MEDS: BUPIVACAINE 0.25% (PF) VIAL 2 ML INJ (14:32)
[2021-10-18] MEDS: IOPAMIDOL 15 ML VIAL 3 ML INJ (14:33)
[2021-10-18] MEDS: DEXAMETHASONE 10 MG/ML VIAL 20 MG INJ (14:33)
[2021-10-18] MEDS: BETAMETHASONE 30 MG/5 ML MDV 12 MG INJ (14:33)
--- NOTE | 2021-10-18 14:43 | P.PCN_ITS ---
Date/Time/Diagnoses Date of procedure: 10/18/21 Time of procedure: 14:43 Pre-procedure diagnosis: 1. FORAMINAL STENOSIS WITH LE SYMPTOMS Post-procedure diagnosis: same Procedure Notes Procedure: 1. FLUOROSCOPICALLY GUIDED CONTRAST CONTROLLED TRANSFORAMINAL EPIDURAL STEROID INJECTION - RIGHT L4/5 TFESI Indications: Conner is referred by Dr. Armas and Dr. Ortiz for treatment of Foraminal Stenosis with Right LE Symptoms Physician: Arnaud Almodovar Total Fluoroscopy time (seconds): 12 Total sedation minutes: 11 Complications: none Procedure in detail & Post-procedure care: FINDINGS Foraminal Nerve Root Compression secondary to disc disease and facet hypertrophy DESCRIPTION OF PROCEDURE Following review of allergy and review of potential side effects and complications, including, but not necessarily limited to, infection, allergic reaction, local tissue breakdown, stroke, temporary or permanent nerve injury, paralysis, and possible , the patient indicated that the patient understood and agreed to proceed. An informed consent document was signed by the patient, witnessed by a nurse, and placed in the patient's chart. Additionally, other treatment options including medications, modalities, and physical therapy were reviewed with the patient. After review of previous anaesthesic history and IV conscious sedation the patient was deemed safe to proceed with today?s procedure with IV conscious sedation as ASA class II designation. Safety time-out was performed to confirm patient ID, procedure to be performed and site of procedure. IV sedation was accomplished with a combination of 2mg of Versed and 50mcg of Fentanyl was administered by the RN after DO order, titrated to patient comfort during the course of the procedure while the patient remained responsive to all verbal commands In the prone position following sterile prep and drape of the lumbar region, the right L4/5 posterior neuroforamen was identified fluoroscopically. The skin was anesthetized via a 25-gauge 1.5-inch needle with 1% lidocaine solution. At this point, a 25-gauge 3.5-inch spinal needle was atraumatically introduced and advanced under fluoroscopic guidance through the posterior right L4/5 neuroforamen to approximately the anterior aspect of the canal. Depth was confirmed on lateral view. Following negative aspiration, injection of approximately 1.5cc of Isovue 200 under live fluoroscopy in the AP view confirmed excellent flow along the nerve root, into the epidural space without vascular or intrathecal uptake observed Radiological data, including multiple fluoroscopic views of the lumbosacral spine, reveal a spinal needle at the right L4/5 posterior neuroforamen. Subsequent views show flow of contrast material flowing superiorly and inferiorly along the nerve root confirming epidural flow. Subsequently, a test dose of 1.5 cc of 1% lidocaine solution was administered and patient was observed for two minutes for signs or symptoms of complications, including abdominal pain, shortness of breath, bilateral upper or lower extremity weakness, nausea and vomiting, prior to steroid injection. At this point, a total of 3cc or 20mg of dexamethasone and 6mg of betamethasone was injected without incident. The procedure tolerated the procedure well without signs or symptoms of complications prior to transfer to the recovery area continued monitoring wi thout incident. The patient was then transferred to the recovery area where they were observed for an appropriate time after the injection. The patient reported a VAS score of 7 prior to the procedure and a post- procedure VAS of 0. POST OP INSTRUCTIONS The patient was provided a Pain Log to continue to record their response to the target-specific procedure prior to follow-up visit with their referring physician. Additionally, specific post-injection care instructions and a contact number to our office were provided if concerns arise regarding possible complications associated with the procedure are suspected.
== END 2021-10-18 15:06 | disposition home or self-care (01) ==
PROVIDERS: PCP Internal Medicine; Referring Provider Physical Medicine & Rehabilitation; Visit Provider Physical Medicine & Rehabilitation
DX: M48.061 Spinal stenosis, lumbar region without neurogenic claudication (principal); M51.16 Intervertebral disc disorders with radiculopathy, lumbar region
CPT/HCPCS: 64483; 99152; J0702; J1100; J2250; J3010

== ENCOUNTER → 2022-03-22 14:09 | Outpatient (CLI) | payer OTHER, SELFPAY ==
--- NOTE | 2022-03-22 14:10 | DI.RAD.S_ITS ---
PROCEDURE: XR CHEST 2V INDICATIONS: Cough, chest congestion TECHNIQUE: 2 views of the chest were acquired. COMPARISON: [facility], CR, XR CHEST 1V, 11/21/2020, 11:37. FINDINGS: Surgical changes and devices: An AICD is seen. The leads are seen in stable positions. Lungs and pleura: An incomplete inspiratory result is noted, causing a crowded appearance to the lung markings. No focal infiltrates are seen. No pneumothorax or significant pleural effusions are seen. Mediastinum: Mediastinal contours are normal. Heart size is normal. Bones and chest wall: No suspicious bony abnormalities. Age-appropriate bony degenerative changes are seen. Soft tissues appear unremarkable. IMPRESSION: Limited chest study, with an incomplete inspiratory result. No definite, focal infiltrates are seen. Postoperative and degenerative changes are seen. Dictated by: Loco Artis M.D. on 03/22/2022 at 13:34 Approved by: Loco Artis M.D. on 03/22/2022 at 13:35
== END ==
PROVIDERS: PCP Internal Medicine; Referring Provider Physician Assistant; Visit Provider Physician Assistant
DX: R05.9 Cough, unspecified (principal)
CPT/HCPCS: 71046

== ENCOUNTER → 2022-07-06 09:33 | Outpatient (CLI) | payer OTHER, SELFPAY ==
[2022-07-06 10:08] LABS: Add Manual Diff / Slide Review NO; Basophils Absolute Auto 0 /uL (0-100); Basophils Percent Auto 0.5 % (0-2); Eosinophils Absolute Auto 200 /uL (0-450); Eosinophils Percent Auto 3.2 % (2-4); Hematocrit 45.9 % (41-53); Hemoglobin 15.5 g/dL (13.5-17.5); Lymphocytes Absolute Auto 800 /uL (1100-4500); Lymphocytes Percent Auto 12.8 % (25-40); Mean Corpuscular HGB Conc 33.7 % (30-36); Mean Corpuscular Hemoglobin 32.1 PG (26-34); Mean Corpuscular Volume 95.1 fL (80-100); Monocytes Absolute Auto 700 /uL (0-900); Monocytes Percent Auto 10.5 % (3-14); Neutrophils Absolute Auto 4600 /uL (1500-7000); Platelet Count 156 X10^3/uL (150-400); Red Blood Cell Count 4.82 X10^6/uL (4.5-5.9); Red Cell Distribution Width 13.1 % (11.6-14.8); White Blood Cell Count 6.4 X10^3/uL (4.5-11.0)
[2022-07-06 10:41] LABS: Alanine Aminotransferase 19 IU/L (<50); Albumin 4.1 g/dL (3.5-5.0); Albumin Globulin Ratio 1.6 (1.0-2.8); Alkaline Phosphatase 48 U/L (38-126); Aspartate Aminotransferase 28 IU/L (17-59); BUN Creatinine Ratio 25.5 (6-22); Bilirubin Total 0.8 mg/dL (0.2-1.3); Blood Urea Nitrogen 27 mg/dL (9-20); Calcium 8.4 mg/dL (8.4-10.2); Carbon Dioxide 27 mmol/L (22-32); Chloride 103 mmol/L (98-107); Cholesterol 67 mg/dL (140-199); Estimated Glomerular Filt Rate > 60 mL/min (>60); Globulin 2.5 g/dL (1.7-4.1); Glucose 104 mg/dL (80-110); HDL Cholesterol 35 mg/dL (40-60); HEMOLYSIS < 15 (0-50); LDL Cholesterol Calculated 14 mg/dL (<100); Potassium 4.7 mmol/L (3.4-5.1); Sodium 136 mmol/L (137-145); Total Protein 6.6 g/dL (6.3-8.2); Triglycerides 92 mg/dL (35-150)
[2022-07-06 11:17] LABS: Thyroid Stimulating Hormone 1.53 uIU/mL (0.47-4.68)
== END ==
PROVIDERS: PCP Family Medicine; Referring Provider Nurse Practitioner; Visit Provider Nurse Practitioner
DX: I25.5 Ischemic cardiomyopathy (principal); E78.5 Hyperlipidemia, unspecified; I10 Essential (primary) hypertension; I25.10 Atherosclerotic heart disease of native coronary artery without angina pectoris
CPT/HCPCS: 36415; 80053; 80061; 84443; 85025

== ENCOUNTER → 2022-07-25 12:11 | Outpatient (CLI) | payer OTHER, SELFPAY ==
--- NOTE | 2022-07-25 12:12 | DI.US.S_ITS ---
ULTRASOUND OF LEFT BREAST: 07/25/2022 CLINICAL: Focal left breast pain. Comparison is made to exam dated: 07/25/2022 mammogram - [facility]. Color flow and real-time ultrasound of the left breast were performed. Solomon scale images of the real-time examination were reviewed. There is an irregular area of fibroglandular tissue in the left breast at 12 o'clock in the retroareolar region. This correlates as palpated, to the reported pain, with mammography findings, and area of clinical concern. IMPRESSION: BENIGN There is no sonographic evidence of malignancy. The irregular area of fibroglandular tissue in the left breast is consistent with gynecomastia and is benign. Recommend clinical follow up for persistent or worsening symptoms, or development of any clinically suspicious findings. Findings and recommendations were conveyed to the patient during today's evaluation. This exam was interpreted at Station ID: [id number]. Electronically Signed By: Jacobo Iyer M.D. aty/:07/25/2022 13:22:17 Ultrasound BI-RADS: 2 Benign
--- NOTE | 2022-07-25 12:12 | DI.MG.S_ITS ---
MALE BILATERAL DIGITAL DIAGNOSTIC MAMMOGRAM 3D/2D: 07/25/2022 CLINICAL: Left brest pain. No prior exams were available for comparison. There is an irregular low density asymmetry in the left breast at 12 o'clock anterior depth. This correlates as palpated, to the area of reported pain, and with area of clinical concern. No other significant masses, calcifications, or other findings are seen in either breast. IMPRESSION: INCOMPLETE: NEEDS ADDITIONAL IMAGING EVALUATION The irregular low density asymmetry in the left breast likely represents gynecomastia and correlates with area of palpable concern; however, it remains indeterminate. An ultrasound is recommended for further evaluation and is scheduled to immediately follow this examination. This exam was interpreted at Station ID: [id number]. NOTE: For mammograms, a report in lay terms will be sent to the patient. Approximately 15% of breast malignancies will not be visualized mammographically. In the management of a palpable breast mass, a negative mammogram must not discourage biopsy of a clinically suspicious lesion. Electronically Signed By: Jacobo Iyer M.D. aty/:07/25/2022 13:16:45 ACR BI-RADS Category 0: Incomplete [id number]
== END ==
PROVIDERS: PCP Family Medicine; Referring Provider Family Medicine; Visit Provider Family Medicine
DX: N64.4 Mastodynia (principal); R92.8 Other abnormal and inconclusive findings on diagnostic imaging of breast
CPT/HCPCS: 76642; 77066; G0279

== ENCOUNTER → 2022-10-16 10:46 | Outpatient (CLI) | payer OTHER, SELFPAY ==
[2022-10-16 11:31] LABS: Add Manual Diff / Slide Review NO; Basophils Absolute Auto 0 /uL (0-100); Basophils Percent Auto 0.7 % (0-2); Eosinophils Absolute Auto 300 /uL (0-450); Eosinophils Percent Auto 4.8 % (2-4); Hematocrit 54.1 % (41-53); Hemoglobin 17.8 g/dL (13.5-17.5); Lymphocytes Absolute Auto 800 /uL (1100-4500); Lymphocytes Percent Auto 15.4 % (25-40); Mean Corpuscular HGB Conc 32.9 % (30-36); Mean Corpuscular Hemoglobin 31.6 PG (26-34); Monocytes Absolute Auto 600 /uL (0-900); Monocytes Percent Auto 10.6 % (3-14); Neutrophils Absolute Auto 3700 /uL (1500-7000); Neutrophils Percent Auto 68.5 % (50-75); Platelet Count 187 X10^3/uL (150-400); Red Blood Cell Count 5.63 X10^6/uL (4.5-5.9); Red Cell Distribution Width 13.4 % (11.6-14.8); White Blood Cell Count 5.4 X10^3/uL (4.5-11.0)
[2022-10-16 11:36] LABS: Hemoglobin A1C% w Est Avg Glu 5.7 % (4.0-6.0); INR 1.1 (0.9-1.3); Prothrombin Time 12.8 SECONDS (10.1-12.7)
[2022-10-16 11:39] LABS: PTT Partial Thromboplastin Tim 32 SECONDS (26-36)
[2022-10-16 11:44] LABS: Alanine Aminotransferase 23 IU/L (<50); Albumin 4.4 g/dL (3.5-5.0); Albumin Globulin Ratio 1.3 (1.0-2.8); Alkaline Phosphatase 61 U/L (38-126); Aspartate Aminotransferase 28 IU/L (17-59); BUN Creatinine Ratio 22.6 (6-22); Blood Urea Nitrogen 26 mg/dL (9-20); Carbon Dioxide 26 mmol/L (22-32); Chloride 102 mmol/L (98-107); Cholesterol 103 mg/dL (140-199); Estimated Glomerular Filt Rate > 60 mL/min (>60); Globulin 3.3 g/dL (1.7-4.1); Glucose 103 mg/dL (80-110); HDL Cholesterol 33 mg/dL (40-60); HEMOLYSIS < 15 (0-50); LDL Cholesterol Calculated 51 mg/dL (<100); Potassium 4.8 mmol/L (3.4-5.1); Sodium 138 mmol/L (137-145); Total Protein 7.7 g/dL (6.3-8.2); Triglycerides 93 mg/dL (35-150)
[2022-10-16 12:00] LABS: Iron 94 ug/dL (49-181); Vitamin D 25 Hydroxy (D3) 42.3 ng/mL (30.0-100.0)
[2022-10-16 12:07] LABS: Microalbumi Creatinin Ratio Ur 18.5 ug/mg CR (<30); Microalbumin Urine Random 2.1 mg/dL (0-1.6)
[2022-10-16 12:13] LABS: Prostate Specific Antigen Scrn 0.576 ng/mL (0.1-4.0)
[2022-10-16 12:14] LABS: TSH w/ Reflex to FT4 1.31 uIU/mL (0.47-4.68)
[2022-10-16 12:18] LABS: Ferritin 43 ng/mL (18-464)
[2022-10-16 12:32] LABS: Vitamin B12 399 pg/mL (239-931)
[2022-10-18 07:39] LABS: Parathyroid Hormone Int 57 pg/mL (15-65)
== END ==
PROVIDERS: Nurse Practitioner Family; PCP Family Medicine; Referring Provider Nurse Practitioner Family; Visit Provider Nurse Practitioner Family
DX: E88.81 Metabolic syndrome and other insulin resistance (principal); Z68.37 Body mass index [BMI] 37.0-37.9, adult; Z12.5 Encounter for screening for malignant neoplasm of prostate; E78.2 Mixed hyperlipidemia; I25.10 Atherosclerotic heart disease of native coronary artery without angina pectoris; I25.5 Ischemic cardiomyopathy; M51.26 Other intervertebral disc displacement, lumbar region; M54.17 Radiculopathy, lumbosacral region
CPT/HCPCS: 36415; 80053; 80061; 82043; 82306; 82570; 82607; 82728; 82747; 83036; 83540; 83970; 84443; 85014; 85025; 85610; 85730; 86677; G0103

== ENCOUNTER → 2022-11-01 09:50 | Outpatient (CLI) | payer OTHER, SELFPAY ==
[2022-11-01 11:22] LABS: COVID19 -Nasal RAPID Negative (Negative)
== END ==
PROVIDERS: PCP Family Medicine; Visit Provider Surgery
DX: Z20.822 Contact with and (suspected) exposure to COVID-19 (principal); Z01.812 Encounter for preprocedural laboratory examination
CPT/HCPCS: 87635; C9803

== ENCOUNTER 2022-11-02 15:48 | Day surgery (SDC) | payer OTHER, SELFPAY ==
--- NOTE | 2022-11-02 | PATH_ITS ---
[facility] Accession Number: [id number] No. of containers..03 Tissue . 01 Material submitted: . PART A: cecum - CECUM POLYP PART B: colon - ASCENDING COLON POLYP PART C: sigmoid colon - SIGMOID POLYP . 01 Diagnosis: A. Cecum, Polyp, Biopsy: Tubular adenoma. . B. Ascending Colon, Polyp, Biopsy: Colonic mucosa with no diagnostic abnormality, consistent with polypoid redundancy. Additional levels were examined. . C. Sigmoid Colon, Polyp, Biopsy: Hyperplastic polyp. Additional levels were examined. [facility] 11/07/2022 1119 Local . 01 Electronically signed: . Elizabeth Amin MD, Pathologist NPI- [id number] . 01 Gross description: . Part A: CECUM POLYP: Received in formalin is 1 fragment(s) of hart, soft tissue measuring 0.6 x 0.2 x 0.2 cm submitted entirely in 1 cassette(s) Part B: ASCENDING COLON POLYP: Received in formalin is 1 fragment(s) of hart, soft tissue measuring 0.4 x 0.3 x 0.2 cm submitted entirely in 1 cassette(s) Part C: SIGMOID POLYP: Received in formalin is 1 fragment(s) of hart, soft tissue measuring 0.3 x 0.2 x 0.2 cm submitted entirely in 1 cassette(s) /[facility] 11/03/2022 2330 Local . 01 Pathologist provided ICD-10: D12.0 . 01 CPT . 996809, 725405, 564070 Specimen Comment: A courtesy copy of this report has been sent to [phone] Performed at: 01 [facility] [address] [place] [address] [address], [place], [place] [id number] MD Scot Jennings MD Phone: [phone]
[2022-11-02] MEDS: LACTATED RINGERS 1,000 ML 42 ML IV (16:07)
[2022-11-02 16:10] VITALS: BP 135/84; PULSE 67; RESP 17; TEMP 36.1; O2SAT 100; BMI 36.9
--- NOTE | 2022-11-02 17:05 | P.HP_ITS ---
History of Present Illness History of Present Illness Date Patient Seen: 11/02/22 Time Patient Seen: 17:05 Chief complaint: SCREENING COLONOSCOPY Narrative: Dariel is a 62-year-old man who had a colonoscopy about 5 years ago. He did have polyps. He is also had some increased lower rectal discomfort recently. Patient History Medical History Coronary artery disease involving galena coronary artery of galena heart without angina pectoris (12/28/17) Exercise-induced asthma Facet arthropathy, lumbar Herniated nucleus pulposus, L2-3 left History of small bowel obstruction (2013) Hyperlipidemia Ischemic cardiomyopathy Lumbar post-laminectomy syndrome Lumbosacral radiculopathy at L4 Myocardial infarction involving left anterior descending (LAD) coronary artery (2017) Obesity (BMI 30-39.9) Obstructive sleep apnea of adult Pacemaker Surgical History History of placement of stent in LAD coronary artery (2017) S/P implantation of automatic cardioverter/defibrillator (AICD) S/P laminectomy Family & Social History Social History: household members spouse Tobacco & Substance use: Smoking Status Never smoker alcohol intake current alcohol intake frequency 0-2 drinks per day Substance Use Type does not use Meds Home Medications and Allergies Home Medications Medication Instructions Recorded Confirmed Type aspirin 81 mg chewable tablet 81 mg PO QDAY pain ##0 12/28/17 11/02/22 History carvedilol 12.5 mg tablet 12.5 mg PO BID 07/29/20 11/02/22 History clopidogrel 75 mg tablet 75 mg PO .QEVENING 07/29/20 11/02/22 History nitroglycerin 0.4 mg sublingual 0.4 mg sublingual Q5-15M PRN chest 07/29/20 11/02/22 History tablet (Nitrostat) pain #0 tabs sacubitril 24 mg-valsartan 26 mg 1 tab PO BID 07/29/20 11/02/22 History tablet (Entresto) sacubitril 49 mg-valsartan 51 mg 1 tab PO BID 07/29/20 11/02/22 History tablet (Entresto) spironolactone 25 mg tablet 25 mg PO .QEVENING #0 tabs 07/29/20 11/02/22 History evolocumab 140 mg/mL subcutaneous 140 mg SUBCUT Q2W 03/02/21 11/02/22 History pen injector (Brissa Spring) atorvastatin 80 mg tablet 80 mg PO BEDTIME #90 tabs 06/14/21 11/02/22 Rx celecoxib 200 mg capsule (Celebrex) 200 mg PO DAILY #30 caps 02/16/22 11/02/22 Rx levalbuterol tartrate 45 2 puff inhalation Q4-6H PRN 04/13/22 11/02/22 Rx mcg/actuation aerosol inhaler shortness of breath #15 grams (Xopenex HFA) omeprazole 40 mg capsule,delayed 40 mg PO DAILY #90 tabs 06/05/22 11/02/22 Rx release doxycycline hyclate 100 mg capsule 100 mg PO DAILY PRN skin 07/04/22 11/02/22 History cyclobenzaprine 10 mg tablet 10 mg PO BID PRN muscle spasm #60 08/14/22 11/02/22 Rx tabs empagliflozin 10 mg tablet 10 mg PO DAILY 08/14/22 11/02/22 History (Jardiance) tralokinumab-ldrm 150 mg/mL ml SUBCUT 10/18/22 10/18/22 History subcutaneous syringe (Adbry) sodium sul 1.479 gram-potas ch See Rx Instructions PO PER PKG DIR 10/26/22 11/02/22 Rx 0.188 gram-magnes sul 0.225 gram #24 tabs tablet (Sutab) Allergies Allergy/AdvReac Type Severity Reaction Status Date / Time No Known Drug Allergies Allergy Verified 10/18/22 15:37 Exam Vital Signs (past 8 hours): - 11/02/22 16:10 Temperature 96.9 F L Pulse Rate 67 Respiratory Rate 17 Blood Pressure 135/84 Pulse Oximetry 100 Oxygen Delivery Method Room Air Oxygen Delivery Method Room Air Const General: No acute distress Assessment & Plan Assessment and plan (1) Colon cancer screening: Status: Acute Plan 62-year-old man here for colonoscopy for colon cancer screening. Reviewed the risks and benefits and he would like to proceed. Time Spent With Patient Critical Care time: I spent a total of [] minutes of critical care time on this patient's care today; this time is exclusive of procedural time.
--- NOTE | 2022-11-02 17:41 | PM.OP.COLON ---
Operative Date/Time/Diagnoses Date of procedure: 11/02/22 Time of procedure: 17:42 Pre-op diagnosis: History of polyps Post-op diagnosis: same Procedure & Clinicians Study performed: Colonoscopy Same procedure as scheduled: Yes Surgeon: Nino Nino Procedure Notes Procedure in detail: Surgeon: Nino Nino MD Anesthesia: Dr. Domingo Procedure: The patient was brought to the endoscopy suite, placed in left lateral decubitus position. The patient was connected to monitoring devices. A time-out was performed. Sedation was administered. Once the patient was adequately sedated, a digital rectal exam was performed and was normal. The scope was then inserted and advanced to the cecum where the appendiceal orifice was identified and photographed. The scope was then slowly withdrawn over greater than 6 minutes. The mucosa was thoroughly inspected. There was a 4 mm polyp in the cecum removed with a Jumbo forceps. There was a 5 mm polyp in the ascending colon removed with the Jumbo forceps. There was a 5 mm polyp in the sigmoid colon removed with the Jumbo forceps. The scope was retroflexed in the rectum. No other abnormalities were seen. The scope was straightened and removed. The patient was awakened and brought to recovery. Scope withdrawal time: 12 minutes Sedation time: 22 minutes EBL: 5 mL Findings: 4 mm polyp in the cecum, 5 mm polyp in the ascending colon and 5 mm polyp in the sigmoid colon Post-procedure Disposition: PACU
[2022-11-02 17:43] VITALS: BP 114/67; PULSE 65; RESP 14; TEMP 36.7; O2SAT 95
[2022-11-02 17:48] VITALS: BP 121/76; PULSE 60; RESP 15; O2SAT 96
[2022-11-02 17:53] VITALS: BP 108/72; PULSE 61; RESP 16; O2SAT 96
[2022-11-02 17:54] VITALS: BP 110/69; PULSE 60; RESP 12; TEMP 36.4; O2SAT 98
[2022-11-02 17:58] VITALS: BP 112/70; PULSE 60; RESP 15; O2SAT 98
== END 2022-11-02 18:15 | disposition home or self-care (01) ==
PROVIDERS: PCP Family Medicine; Referring Provider Surgery; Visit Provider Surgery
PROC: 0DJD8ZZ Inspection of Lower Intestinal Tract, Via Natural or Artificial Opening Endoscopic (ICD-10-PCS; CPT 45378; principal; 2022-11-02 15:45)
DX: Z12.11 Encounter for screening for malignant neoplasm of colon (principal); Z86.010 Personal history of colon polyps; D12.0 Benign neoplasm of cecum
CPT/HCPCS: 45380; J2704; J3010

== ENCOUNTER → 2023-01-08 07:46 | Outpatient (CLI) | payer MEDICARE, OTHER, SELFPAY ==
[2023-01-08 08:43] LABS: Add Manual Diff / Slide Review NO; Basophils Absolute Auto 0 /uL (0-100); Basophils Percent Auto 0.4 % (0-2); Eosinophils Absolute Auto 300 /uL (0-450); Eosinophils Percent Auto 4.9 % (2-4); Hematocrit 49.8 % (41-53); Hemoglobin 16.9 g/dL (13.5-17.5); Lymphocytes Absolute Auto 1000 /uL (1100-4500); Lymphocytes Percent Auto 16.4 % (25-40); Mean Corpuscular HGB Conc 33.9 % (30-36); Mean Corpuscular Hemoglobin 31.9 PG (26-34); Mean Corpuscular Volume 93.9 fL (80-100); Monocytes Absolute Auto 600 /uL (0-900); Monocytes Percent Auto 10.6 % (3-14); Neutrophils Absolute Auto 4100 /uL (1500-7000); Neutrophils Percent Auto 67.7 % (50-75); Platelet Count 152 X10^3/uL (150-400); Red Blood Cell Count 5.31 X10^6/uL (4.5-5.9); Red Cell Distribution Width 13.6 % (11.6-14.8)
== END ==
PROVIDERS: PCP Family Medicine; Referring Provider Nurse Practitioner Family; Visit Provider Nurse Practitioner Family
DX: R71.8 Other abnormality of red blood cells (principal)
CPT/HCPCS: 36415; 81256; 85025

== ENCOUNTER → 2023-06-29 07:53 | Outpatient (CLI) | payer MEDICARE, OTHER, SELFPAY ==
[2023-06-29 09:09] LABS: BUN Creatinine Ratio 23.7 (6-22); Blood Urea Nitrogen 23 mg/dL (9-20); Carbon Dioxide 26 mmol/L (22-32); Chloride 102 mmol/L (98-107); Estimated Glomerular Filt Rate > 60 mL/min (>60); Glucose 92 mg/dL (80-110); HEMOLYSIS < 15 (0-50); Potassium 4.3 mmol/L (3.4-5.1); Sodium 136 mmol/L (137-145)
[2023-06-29 10:04] LABS: Add Manual Diff / Slide Review NO; Basophils Absolute Auto 0 /uL (0-100); Basophils Percent Auto 0.5 % (0-2); Eosinophils Absolute Auto 200 /uL (0-450); Eosinophils Percent Auto 3.6 % (2-4); Hematocrit 51.8 % (41-53); Hemoglobin 17.5 g/dL (13.5-17.5); Lymphocytes Absolute Auto 800 /uL (1100-4500); Lymphocytes Percent Auto 14.6 % (25-40); Mean Corpuscular HGB Conc 33.8 % (30-36); Mean Corpuscular Hemoglobin 32.4 PG (26-34); Mean Corpuscular Volume 95.7 fL (80-100); Monocytes Absolute Auto 600 /uL (0-900); Monocytes Percent Auto 11.5 % (3-14); Neutrophils Absolute Auto 3800 /uL (1500-7000); Neutrophils Percent Auto 69.8 % (50-75); Platelet Count 147 X10^3/uL (150-400); Red Blood Cell Count 5.41 X10^6/uL (4.5-5.9); Red Cell Distribution Width 13.4 % (11.6-14.8); White Blood Cell Count 5.4 X10^3/uL (4.5-11.0)
== END ==
PROVIDERS: PCP Family Medicine; Referring Provider Nurse Practitioner Family; Visit Provider Nurse Practitioner Family
DX: E88.81 Metabolic syndrome and other insulin resistance (principal)
CPT/HCPCS: 36415; 80048; 85025

== ENCOUNTER → 2023-12-06 07:32 | Outpatient (CLI) | payer MEDICARE, OTHER, SELFPAY ==
[2023-12-06 09:16] LABS: Alanine Aminotransferase 12 IU/L (<50); Albumin 3.8 g/dL (3.5-5.0); Albumin Globulin Ratio 1.5 (1.0-2.8); Alkaline Phosphatase 54 U/L (38-126); Aspartate Aminotransferase 23 IU/L (17-59); BUN Creatinine Ratio 35.2 (6-22); Bilirubin Total 1.1 mg/dL (0.2-1.3); Blood Urea Nitrogen 25 mg/dL (9-20); Calcium 9.1 mg/dL (8.4-10.2); Carbon Dioxide 28 mmol/L (22-32); Chloride 103 mmol/L (98-107); Cholesterol 80 mg/dL (140-199); Estimated Glomerular Filt Rate > 60 mL/min (>60); Globulin 2.5 g/dL (1.7-4.1); Glucose 87 mg/dL (80-110); HDL Cholesterol 46 mg/dL (40-60); HEMOLYSIS < 15 (0-50); LDL Cholesterol Calculated 19 mg/dL (<100); Potassium 4.2 mmol/L (3.4-5.1); Sodium 139 mmol/L (137-145); Total Protein 6.3 g/dL (6.3-8.2); Triglycerides 76 mg/dL (35-150)
== END ==
PROVIDERS: PCP Family Medicine; Referring Provider Nurse Practitioner; Visit Provider Nurse Practitioner
DX: E78.5 Hyperlipidemia, unspecified (principal)
CPT/HCPCS: 36415; 80053; 80061

== ENCOUNTER → 2024-07-24 07:09 | Outpatient (CLI) | payer MEDICARE, OTHER, SELFPAY ==
[2024-07-24 08:39] LABS: Add Manual Diff / Slide Review NO; Basophils Absolute Auto 0 /uL (0-100); Basophils Percent Auto 0.3 % (0-2); Eosinophils Absolute Auto 200 /uL (0-450); Eosinophils Percent Auto 2.9 % (2-4); Hematocrit 48.5 % (41-53); Hemoglobin 16.4 g/dL (13.5-17.5); Lymphocytes Absolute Auto 900 /uL (1100-4500); Lymphocytes Percent Auto 15.1 % (25-40); Mean Corpuscular HGB Conc 33.8 % (30-36); Mean Corpuscular Hemoglobin 32.8 PG (26-34); Monocytes Absolute Auto 600 /uL (0-900); Monocytes Percent Auto 10.5 % (3-14); Neutrophils Absolute Auto 4300 /uL (1500-7000); Neutrophils Percent Auto 71.2 % (50-75); Platelet Count 186 X10^3/uL (150-400); Red Cell Distribution Width 14.5 % (11.6-14.8); White Blood Cell Count 6.1 X10^3/uL (4.5-11.0)
[2024-07-24 08:51] LABS: Creatinine Urine Random 72.34 mg/dL
[2024-07-24 08:55] LABS: Alanine Aminotransferase 29 IU/L (<50); Albumin 4.1 g/dL (3.5-5.0); Albumin Globulin Ratio 1.9 (1.0-2.8); Alkaline Phosphatase 65 U/L (38-126); Aspartate Aminotransferase 34 IU/L (17-59); BUN Creatinine Ratio 25.3 (6-22); Bilirubin Total 1.2 mg/dL (0.2-1.3); Blood Urea Nitrogen 21 mg/dL (9-20); Calcium 9.5 mg/dL (8.4-10.2); Carbon Dioxide 29 mmol/L (22-32); Chloride 102 mmol/L (98-107); Cholesterol 94 mg/dL (140-199); Estimated Glomerular Filt Rate > 60 mL/min (>60); Globulin 2.2 g/dL (1.7-4.1); Glucose 97 mg/dL (80-110); HDL Cholesterol 55 mg/dL (40-60); HEMOLYSIS < 15 (0-50); LDL Cholesterol Calculated 25 mg/dL (<100); Potassium 5.1 mmol/L (3.4-5.1); Sodium 137 mmol/L (137-145); Total Protein 6.3 g/dL (6.3-8.2); Triglycerides 72 mg/dL (35-150)
[2024-07-24 09:00] LABS: Microalbumin Urine Random < 0.6 mg/dL (0-1.6)
[2024-07-24 09:23] LABS: Prostate Specific Antigen Scrn 0.546 ng/mL (0.1-4.0)
[2024-07-24 15:25] LABS: Hep C Virus Ab w/Reflex Quant NEGATIVE s/c (NEGATIVE)
[2024-07-25 05:14] LABS: Apolipoprotein B 36 mg/dL (<90)
== END ==
PROVIDERS: PCP Family Medicine; Referring Provider Nurse Practitioner; Visit Provider Nurse Practitioner
DX: I25.10 Atherosclerotic heart disease of native coronary artery without angina pectoris (principal); Z12.5 Encounter for screening for malignant neoplasm of prostate; E78.5 Hyperlipidemia, unspecified; I25.5 Ischemic cardiomyopathy; Z95.0 Presence of cardiac pacemaker; N40.0 Benign prostatic hyperplasia without lower urinary tract symptoms
CPT/HCPCS: 80053; 80061; 82043; 82172; 82570; 85025; 86803; G0103

== ENCOUNTER → 2025-03-10 15:12 | Outpatient (CLI) | payer MEDICARE, OTHER, SELFPAY ==
[2025-03-10 16:24] LABS: Add Manual Diff / Slide Review NO; Basophils Absolute Auto 0 /uL (0-100); Basophils Percent Auto 0.3 % (0-2); Eosinophils Absolute Auto 200 /uL (0-450); Eosinophils Percent Auto 2.7 % (2-4); Hematocrit 45.8 % (41-53); Hemoglobin 15.3 g/dL (13.5-17.5); Lymphocytes Absolute Auto 1100 /uL (1100-4500); Lymphocytes Percent Auto 14.4 % (25-40); Mean Corpuscular HGB Conc 33.4 % (30-36); Mean Corpuscular Hemoglobin 32.4 PG (26-34); Monocytes Absolute Auto 700 /uL (0-900); Monocytes Percent Auto 8.9 % (3-14); Neutrophils Absolute Auto 5500 /uL (1500-7000); Neutrophils Percent Auto 73.7 % (50-75); Platelet Count 185 X10^3/uL (150-400); Red Blood Cell Count 4.72 X10^6/uL (4.5-5.9); Red Cell Distribution Width 13.3 % (11.6-14.8); White Blood Cell Count 7.5 X10^3/uL (4.5-11.0)
[2025-03-10 16:55] LABS: Alanine Aminotransferase 58 IU/L (<50); Albumin 3.8 g/dL (3.5-5.0); Albumin Globulin Ratio 1.7 (1.0-2.8); Alkaline Phosphatase 61 U/L (38-126); Aspartate Aminotransferase 56 IU/L (17-59); BUN Creatinine Ratio 32.1 (6-22); Bilirubin Total 0.8 mg/dL (0.2-1.3); Blood Urea Nitrogen 26 mg/dL (9-20); Calcium 8.9 mg/dL (8.4-10.2); Carbon Dioxide 27 mmol/L (22-32); Chloride 104 mmol/L (98-107); Estimated Glomerular Filt Rate > 60 mL/min (>60); Globulin 2.2 g/dL (1.7-4.1); Glucose 100 mg/dL (70-99); HEMOLYSIS < 15 (0-50); Potassium 4.5 mmol/L (3.4-5.1); Sodium 136 mmol/L (137-145)
== END ==
PROVIDERS: PCP Family Medicine; Referring Provider Family Medicine; Visit Provider Family Medicine
DX: R42 Dizziness and giddiness (principal); I25.5 Ischemic cardiomyopathy; I25.10 Atherosclerotic heart disease of native coronary artery without angina pectoris; N40.0 Benign prostatic hyperplasia without lower urinary tract symptoms; Z95.0 Presence of cardiac pacemaker
CPT/HCPCS: 36415; 80053; 85025

== ENCOUNTER → 2025-03-11 08:09 | Outpatient (CLI) | payer MEDICARE, OTHER, SELFPAY ==
--- NOTE | 2025-03-11 08:11 | DI.CT.S_ITS ---
PROCEDURE: CT ANGIO HEAD AND NECK INDICATIONS: Ischemic cardiomyopathy and low BP and dizziness TECHNIQUE: After the administration of intravenous contrast, 1 mm thick sections acquired from the aortic arch through the [place] of [place]. 3-dimensional bedsljp-jiuzfzfmi-fvoofmnagz (MIP) and/or volume rendering reformats were acquired of the central intracranial vasculature and neck separately. For radiation dose reduction, the following was used: automated exposure control, adjustment of mA and/or kV according to patient size. COMPARISON: None. FINDINGS: Image quality: Diagnostic. Cerebral CT Angiogram: Internal carotid arteries: No acute findings. Intracranial ICA are patent with no significant stenosis. Atherosclerotic calcifications noted in the cavernous and clinoid segments of the internal carotid arteries bilaterally which causes mild stenosis of the vessels. No occlusion. No aneurysm. Anterior cerebral arteries: Unremarkable. No significant stenosis. No occlusion. No aneurysm. Middle cerebral arteries: Unremarkable. No significant stenosis. No occlusion. No aneurysm. Posterior cerebral arteries: Unremarkable. No significant stenosis. No occlusion. No aneurysm. Basilar artery: Unremarkable. No significant stenosis. No occlusion. No aneurysm. Vertebral arteries: Unremarkable as visualized. Dural venous sinuses: Unremarkable given phase of enhancement. Other: Arterial phase appearance of the brain parenchyma is unremarkable. Neck CT Angiogram: Internal carotid arteries: Unremarkable. Atherosclerotic calcifications in the origins of the internal carotid arteries which causes mild, less than 50% stenosis of the vessels. No dissection or occlusion. Common carotid arteries: Unremarkable. No significant stenosis. No dissection or occlusion. External carotid arteries: Unremarkable. No occlusion. Vertebral arteries: Unremarkable. No significant stenosis. No dissection or occlusion. Aortic Arch and Mediastinum: Partially visualized aortic arch unremarkable without evidence of aneurysm. Origins of the great vessels unremarkable. Other: Arterial phase soft tissues of the neck and chest are unremarkable. Left chest wall cardiac pacer. Spine degenerative disc disease and facet arthropathy. IMPRESSION: No large vessel occlusion, significant vascular stenosis, vascular dissection or aneurysm. Any quantitative measurements of stenosis were performed using NASCET criteria. Dictated by: Tricia Peña MD, PhD on 03/11/2025 at 10:59 Approved by: Tricia Peña MD, PhD on 03/11/2025 at 11:03
--- NOTE | 2025-03-11 08:11 | DI.ECHO.S_ITS ---
[facility] +---------+ [facility] : : [address] : : [place] : : [id number] : : Phone: [phone] Echocardiogram Report + + :Name: JEANNIE CH Study Date: 03/11/2025 Height: 73 in : :Hospital ReadingLocation: Weight: 215 lb : : Gender: Male BSA: 2.2 m2 : :: 1960 Age: 65 yrs BP: 103/75 mmHg: :Reason For Study: ISCHEMIC CARDIOMYOPATHY : :Ordering Physician: LIANA, : :YUVAL Performed By: Trey Aldridge : :Referring: YUVAL GAINES : + + Interpretation Summary The left ventricle is severely dilated. The ejection fraction is estimated to be 25-30%. Previous LVEF 25 to 30%. There is a akinesis of entire septum with severe hypokinesis to akinesis of inferior wall extending into the apex, distal anterior wall as well as distal lateral wall without any significant change from the previous study. The right ventricle is mild to moderately dilated. The right ventricular systolic function is normal. There is a pacemaker lead in the right ventricle. There is mild tricuspid regurgitation. Pulmonary artery pressures cannot be estimated because of the lack of a measurable TR jet velocity. The IVC is dilated (diameter is greater than 2.1 cm) and it collapses less than 50% with a sniff. This suggests a high right atrial pressure of 15 mm Hg. Procedure: A two-dimensional transthoracic echocardiogram with color flow and Doppler was performed. The study quality was technically adequate. Comparison is made with the echocardiogram of 02/20/2019. The patient was in normal sinus rhythm during the exam. Left Ventricle: The left ventricle is severely dilated. There is normal left ventricular wall thickness. There is no thrombus. The ejection fraction is estimated to be 25-30%. There is a akinesis of entire septum with severe hypokinesis to akinesis of inferior wall extending into the apex, distal anterior wall as well as distal lateral wall without any significant change from the previous study. Diastolic parameters suggest probable normal left ventricular diastolic function and normal filling pressures. Right Ventricle: The right ventricle is mild to moderately dilated. There is a pacemaker lead in the right ventricle. The right ventricular systolic function is normal. Atria: The left atrium is moderately dilated. The left atrium has mildly increased in size since the prior echo exam. The right atrium is moderately dilated. There is a catheter/pacemaker lead seen in the right atrium. There is no Doppler evidence for an interatrial shunt. Mitral Valve: The mitral valve leaflets are slightly calcified. There is trace mitral regurgitation. Aortic Valve: The aortic valve is trileaflet. The aortic valve opens well. The aortic valve is mildly calcified. There is no aortic valve stenosis. No aortic regurgitation is present. Tricuspid Valve: The tricuspid valve leaflets are thin and pliable. There is mild tricuspid regurgitation. Pulmonary artery pressures cannot be estimated because of the lack of a measurable TR jet velocity. Pulmonic Valve: The pulmonic valve is not well seen, but is grossly normal. There is no pulmonic valvular regurgitation. Great Vessels: The aortic root is normal size. The dimensions of the ascending aorta are normal. The pulmonary artery is normal size. The IVC is dilated (diameter is greater than 2.1 cm) and it collapses less than 50% with a sniff. This suggests a high right atrial pressure of 15 mm Hg. Pericardium/ Pleura There is no pericardial effusion. There is no pleural effusion. MMode/2D Measurements & Calculations LVIDd: 6.4 cm LVOT diam: 2.2 cm LVIDs: 5.6 cm Ao root diam: 3.3 cm FS: 13.3 % asc Aorta Diam: 3.6 cm EPSS: 2.2 cm IVSd: 0.84 cm LVPWd: 0.83 cm LV marrero. diameter/BSA (cm/m^2): 2.9 LV sys. diameter/BSA (cm/m^2): 2.5 LA A2 area: 25.0 cm2 RA long axis: 5.9 cm LA A4 area: 28.8 cm2 RA area: 25.2 cm2 LA length (vol): 6.4 cm RA vol: 92.1 ml LA vol: 96.0 ml RA : 41.5 ml/m2 LA vol index: 43.3 ml/m2 IVC diam: 2.1 cm RVD1 (basal): 4.5 cm RVD2 (mid): 3.8 cm TAPSE: 3.3 cm Doppler Measurements & Calculations Ao V2 max: 131.6 cm/sec LVOT Max Dirk: 72.2 cm/sec Ao V2 mean: 101.5 cm/sec LV V1 max P.1 mmHg Ao max P.9 mmHg LV V1 VTI: 17.2 cm Ao mean P.4 mmHg NATHALY(I,D): 2.2 cm2 Ao V2 VTI: 30.1 cm NATHALY(V,D): 2.1 cm2 sev ratio: 0.57 NATHALY indexed to BSA (cm^2/m^2): 0.99 MV E max dirk: 81.7 cm/sec PA V2 max: 93.7 cm/sec MV A max dirk: 46.1 cm/sec PA V2 mean: 68.5 cm/sec MV E/A: 1.8 PA mean P.0 mmHg Med Peak E' Dirk: 6.3 cm/sec PA pr(Accel): 51.6 mmHg E/E' med: 13.1 Lat Peak E' Dirk: 6.6 cm/sec E/E' lat: 12.4 E/e' average: 12.7 MV dec time: 0.18 sec SV(LVOT): 66.4 ml Reading Physician:10:46 AM
== END ==
PROVIDERS: PCP Family Medicine; Referring Provider Family Medicine; Visit Provider Family Medicine
DX: I07.1 Rheumatic tricuspid insufficiency (principal); I25.5 Ischemic cardiomyopathy; I25.10 Atherosclerotic heart disease of native coronary artery without angina pectoris; I70.0 Atherosclerosis of aorta; R42 Dizziness and giddiness; Z98.84 Bariatric surgery status; Z95.0 Presence of cardiac pacemaker
CPT/HCPCS: 70496; 70498; 93306; Q9967

== ENCOUNTER → 2025-10-14 09:59 | Outpatient (CLI) | payer MEDICARE, OTHER, SELFPAY ==
[2025-10-14 11:04] LABS: Add Manual Diff / Slide Review NO; Hematocrit 48.7 % (41-53); Hemoglobin 16.5 g/dL (13.5-17.5); Lymphocytes Absolute Auto 800 /uL (1100-4500); Mean Corpuscular HGB Conc 33.8 % (30-36); Mean Corpuscular Hemoglobin 32.1 PG (26-34); Mean Corpuscular Volume 95.0 fL (80-100); Platelet Count 168 X10^3/uL (150-400)
[2025-10-14 11:11] LABS: Hemoglobin A1C% w Est Avg Glu 5.4 % (4.0-6.0)
[2025-10-14 11:25] LABS: HEMOLYSIS < 15 (0-50); Iron 161 ug/dL (49-181)
[2025-10-14 11:29] LABS: Alanine Aminotransferase 35 IU/L (<50); Albumin 4.4 g/dL (3.5-5.0); Albumin Globulin Ratio 1.8 (1.0-2.8); Alkaline Phosphatase 58 U/L (38-126); Blood Urea Nitrogen 17 mg/dL (9-20); Calcium 9.4 mg/dL (8.4-10.2); Carbon Dioxide 27 mmol/L (22-32); Chloride 103 mmol/L (98-107); Cholesterol 122 mg/dL (140-199); Estimated Glomerular Filt Rate > 60 mL/min (>60); Globulin 2.5 g/dL (1.7-4.1); Glucose 93 mg/dL (70-99); HDL Cholesterol 66 mg/dL (40-60); HEMOLYSIS < 15 (0-50); Potassium 4.4 mmol/L (3.4-5.1); Sodium 138 mmol/L (137-145); Total Protein 6.9 g/dL (6.3-8.2); Triglycerides 78 mg/dL (35-150)
[2025-10-14 11:38] LABS: Percent Iron Saturation 53 % (20-50); Total Iron Binding Capacity 301 ug/dL (261-462); Transferrin 254 mg/dL (206-381)
[2025-10-14 11:43] LABS: Vitamin D 25 Hydroxy (D3) 48.6 ng/mL (30.0-100.0)
[2025-10-14 12:05] LABS: Ferritin 79 ng/mL (18-464)
[2025-10-14 12:19] LABS: Vitamin B12 845 pg/mL (239-931)
== END ==
PROVIDERS: PCP Family Medicine
DX: K91.2 Postsurgical malabsorption, not elsewhere classified (principal)
CPT/HCPCS: 36415; 80053; 80061; 82306; 82390; 82525; 82607; 82728; 82747; 83036; 83540; 83550; 83970; 84425; 84590; 84630; 85014; 85025